=== PATIENT | female | born 1960 | race Caucasian/White ===

== ENCOUNTER → 2016-12-31 | Outpatient (CLI) | payer OTHER ==
--- NOTE | 2017-01-02 08:59 | PE ---
Nuclear medicine PET/CT HISTORY: Breast carcinoma, C 50.512 Patient received 12.6 mCi F-18 FDG intravenously. Delayed scanning performed from the skull base thro ugh the mid thighs. Localization and attenuation correction CT scan was performed. Correlation to prior nuclear medicine PET/CT 08/08/2016 Neck and chest: No suspicious hypermetabolic uptake. No evident adenopathy. No lung mass. Calcified h ilar nodes are present on the right. Mild right-sided hilar uptake, SUV 2.8. No pleural or pericardia l effusion. Emphysematous changes are present within the lungs. Calcified right upper lobe lung nodul es present. Right-sided Port-A-Cath shows the distal tip in the vein. Patient is status post left mas tectomy. Mild glandular uptake in the right breast is thought to be physiologic. ABDOMEN: Calcifications noted within the spleen. No retroperitoneal adenopathy or liver mass. Gallsto dangelo are suspected. Osseous structures are unremarkable. Suspect degenerative uptake in the cervical spine. Mild uptake i n the trochanteric regions likely inflammatory. Small focus of uptake in the anterior right femoral n lynette of questionable clinical significance. No associated bone lesion identified. IMPRESSION: Emphysema. Postop changes. Old granulomatous disease. Recurrence is not evident. Addition al findings above.
== END | disposition home or self-care (01) ==
LOC: RADPETMAIN 16:20
PROVIDERS: ATTEND Radiology Radiation Oncology
DX: C50.512 Malignant neoplasm of lower-outer quadrant of left female breast (principal); J43.9 Emphysema, unspecified; Z98.890 Other specified postprocedural states
CPT/HCPCS: 78815; A9552

== ENCOUNTER 2017-02-16 11:19 | Emergency (ER) | payer OTHER ==
--- NOTE | 2017-02-16 11:59 | ED ---
General Adult HPI - General Chief complaint: Nausea/Vomiting/Diarrhea Stated complaint: nausea, dizziness following chemo Time Seen by Provider: 02/16/17 11:40 Source: patient, RN notes reviewed Mode of arrival: wheelchair Limitations: no limitations - History of Present Illness Initial comments: This is a 56-year-old female with past medical history significant for breast cancer. Patient is getting chemotherapy and daily radiation. Patient comes in today because she is lightheaded and she was told her blood pressure was at the lower limit of normal. Patient states she's also been very nauseated but has not vomited. Patient denies any diarrhea. Patient denies any pain. Patient denies headache patient denies numbness weakness. Patient denies chest pain palpitations difficulty breathing or shortness of breath. Patient has any recent fever or chills. Patient denies any dysuria hematuria urinary frequency. - Related Data Home Medications Medication Instructions Recorded Confirmed Citalopram Hydrobromide 40 mg PO DAILY 02/16/17 02/16/17 [Citalopram HBr] Cyanocobalamin (Vitamin B-12) 1,000 mcg PO DAILY 02/16/17 02/16/17 [Vitamin B-12] Vitamin B Complex 1 cap PO DAILY 02/16/17 02/16/17 oxyCODONE HCL/ACETAMINOPHEN 1 tab PO Q6HR PRN 02/16/17 02/16/17 [Percocet 10-325 mg] Allergies Allergy/AdvReac Type Severity Reaction Status Date / Time amoxicillin [Amoxicillin] Allergy Rash/Hives Verified 02/16/17 11:59 steroids Allergy Rash/Hives Uncoded 02/16/17 11:41 Review of Systems ROS Statement: Those systems with pertinent positive or pertinent negative responses have been documented in the HPI. ROS Other: All systems not noted in ROS Statement are negative. Past Medical History Past Medical History: Cancer Additional Past Medical History / Comment(s): gallstones, arthritis, chronic back pain, breast cancer History of Any Multi-Drug Resistant Organisms: None Reported Past Surgical History: Section Additional Past Surgical History / Comment(s): left breast biospy, left breast masectomy Past Psychological History: Anxiety, Depression Smoking Status: Current every day smoker Past Alcohol Use History: None Reported Past Drug Use History: None Reported General Exam - General Exam Comments Initial Comments: GENERAL: Patient is well-developed and well-nourished. Patient is nontoxic and well- hydrated and is in mild distress. ENT: Neck is soft and supple. No significant lymphadenopathy is noted. Oropharynx is clear. Moist mucous membranes. Neck has full range of motion without eliciting any pain. EYES: The sclera were anicteric and conjunctiva were pink and moist. Extraocular movements were intact and pupils were equal round and reactive to light. Eyelids were unremarkable. PULMONARY: Unlabored respirations. Good breath sounds bilaterally. No audible rales rhonchi or wheezing was noted. CARDIOVASCULAR: There is a regular rate and rhythm without any murmurs gallops or rubs. ABDOMEN: Soft and nontender with normal bowel sounds. No palpable organomegaly was noted. There is no palpable pulsatile mass. SKIN: Skin is clear with no lesions or rashes and otherwise unremarkable. NEUROLOGIC: Patient is alert and oriented x3. Cranial nerves II through XII are grossly intact. Motor and sensory are also intact. Normal speech, volume and content. Symmetrical smile. MUSCULOSKELETAL: Normal extremities with adequate strength and full range of motion. No lower extremity swelling or edema. No calf tenderness. LYMPHATICS: No significant lymphadenopathy is noted PSYCHIATRIC: Normal psychiatric evaluation. Normal interpersonal interactions appears functionally intact in deals appropriately with others. No signs of depression. No signs of anxiety. Limitations: no limitations Course Vital Signs 02/16/17 02/16/17 02/16/17 11:41 12:43 13:29 Temperature 97.8 F Pulse Rate 68 58 L Pulse Rate [ 57 L Right Sitting Pulse Oximetery ] Pulse Rate [ 72 Right Standing Pulse Oximetery ] Pulse Rate [ 59 L Right Supine Pulse Oximetery ] Respiratory 17 18 Rate Blood Pressure 102/57 112/53 Blood Pressure 111/57 [Right Arm Sitting] Blood Pressure 101/50 [Right Arm Standing] Blood Pressure 103/54 [Right Arm Supine] O2 Sat by Pulse 96 98 Oximetry 02/16/17 14:25 Temperature 98.5 F Pulse Rate 65 Pulse Rate [ Right Sitting Pulse Oximetery ] Pulse Rate [ Right Standing Pulse Oximetery ] Pulse Rate [ Right Supine Pulse Oximetery ] Respiratory 20 Rate Blood Pressure 101/56 Blood Pressure [Right Arm Sitting] Blood Pressure [Right Arm Standing] Blood Pressure [Right Arm Supine] O2 Sat by Pulse 98 Oximetry Medical Decision Making - Medical Decision Making EKG shows a normal sinus rhythm at 62 bpm ME interval is on a 44 QRS is 100 a QT interval is 4:30 QTC is 436 per patient's EKG shows no ST segment elevation or depression or T-wave abnormality is noted. Back into the room to reevaluate the patient she stated that she felt much better she thinks it's just her anxiety getting the best of her. New. Patient states she's been out of her Celexa for a few weeks. - Lab Data Result diagrams: 02/16/17 12:40 02/16/17 12:40 Lab Results 02/16/17 02/16/17 02/16/17 Range/Units 12:40 12:40 12:40 WBC 3.6 L (3.8-10.6) k/uL RBC 4.25 (3.80-5.40) m/uL Hgb 13.5 (11.4-16.0) gm/dL Hct 39.9 (34.0-46.0) % MCV 94.1 (80.0-100.0) fL MCH 31.8 (25.0-35.0) pg MCHC 33.8 (31.0-37.0) g/dL RDW 14.8 (11.5-15.5) % Plt Count 140 L (150-450) k/uL Neutrophils % 68 % Lymphocytes % 21 % Monocytes % 5 % Eosinophils % 3 % Basophils % 0 % Neutrophils # 2.4 (1.3-7.7) k/uL Lymphocytes # 0.8 L (1.0-4.8) k/uL Monocytes # 0.2 (0-1.0) k/uL Eosinophils # 0.1 (0-0.7) k/uL Basophils # 0.0 (0-0.2) k/uL Sodium 143 (137-145) mmol/L Potassium 4.3 (3.5-5.1) mmol/L Chloride 109 H (98-107) mmol/L Carbon Dioxide 27 (22-30) mmol/L Anion Gap 7 mmol/L BUN 18 H (7-17) mg/dL Creatinine 0.80 (0.52-1.04) mg/dL Est GFR (MDRD) Af Amer >60 (>60 ml/min/1.73 sqM) Est GFR (MDRD) Non-Af >60 (>60 ml/min/1.73 sqM) Glucose 68 L (74-99) mg/dL Calcium 9.3 (8.4-10.2) mg/dL Magnesium 1.9 (1.6-2.3) mg/dL Total Bilirubin 0.4 (0.2-1.3) mg/dL AST 26 (14-36) U/L ALT 30 (9-52) U/L Alkaline Phosphatase 74 (38-126) U/L Total Protein 6.8 (6.3-8.2) g/dL Albumin 3.9 (3.5-5.0) g/dL Urine Color Yellow Urine Appearance Clear (Clear) Urine pH 6.5 (5.0-8.0) Ur Specific [place] 1.012 (1.001-1.035) Urine Protein Negative (Negative) Urine Glucose (UA) Negative (Negative) Urine Ketones Negative (Negative) Urine Blood Negative (Negative) Urine Nitrite Negative (Negative) Urine Bilirubin Negative (Negative) Urine Urobilinogen <2.0 (<2.0) mg/dL Ur Leukocyte Esterase Small H (Negative) Urine RBC <1 (0-5) /hpf Urine WBC 1 (0-5) /hpf Ur Squamous Epith Cells <1 (0-4) /hpf Urine Mucus Rare H (None) /hpf Disposition Clinical Impression: Generalized weakness, Anxiety Disposition: HOME SELF-CARE Condition: Good Instructions: Weakness (ED) Referrals: Lisha Dozier MD [Primary Care Provider] - 1-2 days Time of Disposition: 14:28
[2017-02-16 12:58] LABS: Basophils % (A) 0 %; CH 31.1; CHCM 33.2; Eosinophils # (A) 0.1 k/uL (0-0.7); Eosinophils % (A) 3 %; HCT 39.9 % (34.0-46.0); HDW 2.55; HGB 13.5 gm/dL (11.4-16.0); Luc % (Auto) 3; Lymphocytes # (A) 0.8 k/uL (1.0-4.8); Lymphocytes % (A) 21 %; MCH 31.8 pg (25.0-35.0); MCHC 33.8 g/dL (31.0-37.0); MCV 94.1 fL (80.0-100.0); Mean Platelet Volume 7.8; Monocytes # (A) 0.2 k/uL (0-1.0); Monocytes % (A) 5 %; Neutrophils # (A) 2.4 k/uL (1.3-7.7); Neutrophils % (A) 68 %; RBC 4.25 m/uL (3.80-5.40); RDW 14.8 % (11.5-15.5); WBC 3.6 k/uL (3.8-10.6); WBC (Perox) 3.67
[2017-02-16 13:05] LABS: Appearance,Urine Clear (Clear); Bilirubin,Urine Negative (Negative); Glucose,Urine (UA) Negative (Negative); Ketones,Urine Negative (Negative); Leukocyte Esterase,Urine Small (Negative); Mucus,Urine Rare /hpf; Nitrite,Urine Negative (Negative); PH, Urine 6.5 (5.0-8.0); Particle Count 489; Protein,Urine Negative (Negative); RBC,Urine <1 /hpf (0-5); Specific Gravity,Urine 1.012 (1.001-1.035); Squamous Epithelial Cell,Urine <1 /hpf (0-4); UA Billing (MACRO vs. MICRO) MICRO; Urobilinogen,Urine <2.0 mg/dL (<2.0); WBC,Urine 1 /hpf (0-5)
--- NOTE | 2017-02-16 13:07 | XR ---
EXAMINATION TYPE: XR chest 2V DATE OF EXAM: 02/16/2017 COMPARISON: Chest x-ray May 30, 2016. PET/CT December 31, 2016. HISTORY: Difficulty in breathing. History of breast cancer. TECHNIQUE: Frontal and lateral views of the chest are obtained. FINDINGS: There is stable right internal jugular Mediport catheter. There is background chronic emphy sematous change redemonstrated. There is no focal air space opacity, pleural effusion, or pneumothora x seen. Bilateral hilar prominence correlates with enlarged pulmonary arteries on recent PET/CT. The cardiac silhouette size is within normal limits. The osseous structures are demineralized. Underlyi ng scoliosis is redemonstrated. Left axillary surgical clips from mastectomy with absent breast shado w is redemonstrated. IMPRESSION: Chronic changes without suspicious acute pulmonary process.
[2017-02-16 13:09] LABS: ALT 30 U/L (9-52); AST 26 U/L (14-36); Alkaline Phosphatase 74 U/L (38-126); Anion Gap 7 mmol/L; Blood Urea Nitrogen 18 mg/dL (7-17); Calcium 9.3 mg/dL (8.4-10.2); Carbon Dioxide 27 mmol/L (22-30); Chloride 109 mmol/L (98-107); Glucose 68 mg/dL (74-99); Magnesium 1.9 mg/dL (1.6-2.3); Non-African American GFR(MDRD) >60 (>60 ml/min/1.73 sqM); Potassium 4.3 mmol/L (3.5-5.1); Sodium 143 mmol/L (137-145); Total Bilirubin 0.4 mg/dL (0.2-1.3); Total Protein 6.8 g/dL (6.3-8.2)
[2017-02-16] MEDS ORDERED: SODIUM CHLORIDE 0.9% 500 ML IV ONE (13:19)
[2017-02-16 14:26] VITALS: BP 101/56; PULSE 65; RESP 20; TEMP 98.5
[2017-02-16] MEDS ORDERED: CITALOPRAM HYDROBROMIDE 20 MG TAB PO STA (14:27)
== END 2017-02-16 14:44 | disposition home or self-care (01) ==
LOC: EC 11:19
DX: R53.1 Weakness (principal); F41.9 Anxiety disorder, unspecified; R11.0 Nausea; R42 Dizziness and giddiness; F32.9 Major depressive disorder, single episode, unspecified; Z85.3 Personal history of malignant neoplasm of breast; F17.200 Nicotine dependence, unspecified, uncomplicated; Z79.899 Other long term (current) drug therapy; Z88.0 Allergy status to penicillin; Z88.8 Allergy status to other drugs, medicaments and biological substances
CPT/HCPCS: 36415; 71020; 80053; 81001; 83735; 85025; 93005; 96360; 99284

== ENCOUNTER 2017-12-14 13:39 | Observation (INO) | payer OTHER ==
[2017-12-14] MEDS ORDERED: SODIUM CHLORIDE 0.9% 500 ML IV STA (14:01)
--- NOTE | 2017-12-14 14:02 | ED ---
General Adult HPI - General Chief complaint: Neuro Symptoms/Deficit Stated complaint: LEFT SIDE FACE ITCHING AND NUMB, LEFT SHOULDER NUM Time Seen by Provider: 12/14/17 14:00 Source: patient, RN notes reviewed Mode of arrival: ambulatory Limitations: no limitations - History of Present Illness Initial comments: This a 57-year-old female presents emergency Department complaining that yesterday she started having itching to the left side of her face and today she started having some more itching and it eventually turned into a tingling sensation his left side of her face was falling asleep. Patient states she can still feel when she touches lightly to her face and she still is full range of motion of her face eyes and mouth. Patient denies any visual disturbance or speech disturbance. Patient denies any numbness or weakness to any of her extremities. Patient denies any chest pain palpitations difficulty breathing shortness of breath. Patient denies any recent fever chills or cough. Patient denies abdominal pain patient denies nausea vomiting or diarrhea. - Related Data Home Medications Medication Instructions Recorded Confirmed Citalopram Hydrobromide 40 mg PO DAILY 02/16/17 12/14/17 [Citalopram HBr] Allergies Allergy/AdvReac Type Severity Reaction Status Date / Time amoxicillin [Amoxicillin] Allergy Rash/Hives Verified 12/14/17 14:31 steroids Allergy Rash/Hives Uncoded 12/14/17 13:51 Review of Systems ROS Statement: Those systems with pertinent positive or pertinent negative responses have been documented in the HPI. ROS Other: All systems not noted in ROS Statement are negative. Past Medical History Past Medical History: Cancer Additional Past Medical History / Comment(s): gallstones, arthritis, chronic back pain, breast cancer History of Any Multi-Drug Resistant Organisms: None Reported Past Surgical History: Section Additional Past Surgical History / Comment(s): left breast biospy, left breast masectomy Past Psychological History: Anxiety, Depression Smoking Status: Current every day smoker Past Alcohol Use History: None Reported Past Drug Use History: None Reported General Exam - General Exam Comments Initial Comments: GENERAL: Patient is well-developed and well-nourished. Patient is nontoxic and well- hydrated and is in mild distress. ENT: Neck is soft and supple. No significant lymphadenopathy is noted. Oropharynx is clear. Moist mucous membranes. Neck has full range of motion without eliciting any pain. EYES: The sclera were anicteric and conjunctiva were pink and moist. Extraocular movements were intact and pupils were equal round and reactive to light. Eyelids were unremarkable. PULMONARY: Unlabored respirations. Good breath sounds bilaterally. No audible rales rhonchi or wheezing was noted. CARDIOVASCULAR: There is a regular rate and rhythm without any murmurs gallops or rubs. ABDOMEN: Soft and nontender with normal bowel sounds. SKIN: Skin is clear with no lesions or rashes and otherwise unremarkable. NEUROLOGIC: Patient is alert and oriented x3. Cranial nerves II through XII are grossly intact. Motor and sensory are also intact. Normal speech, volume and content. Symmetrical smile. MUSCULOSKELETAL: Normal extremities with adequate strength and full range of motion. No lower extremity swelling or edema. No calf tenderness. LYMPHATICS: No significant lymphadenopathy is noted PSYCHIATRIC: Normal psychiatric evaluation. Normal interpersonal interactions appears functionally intact in deals appropriately with others. No signs of depression. No signs of anxiety. Limitations: no limitations Course Vital Signs 12/14/17 13:47 Temperature 98.8 F Pulse Rate 85 Respiratory 16 Rate Blood Pressure 110/65 O2 Sat by Pulse 96 Oximetry Medical Decision Making - Medical Decision Making Chest x-ray shows no acute abnormality. Computed tomography scan shows no acute abnormality. Still feels abnormal sensation in her face I spoke to [facility] hospitalist I admitted the patient and wrote admitting orders - Lab Data Result diagrams: 12/14/17 14:10 12/14/17 14:10 Lab Results 12/14/17 12/14/17 12/14/17 Range/Units 14:04 14:10 14:10 WBC 6.9 (3.8-10.6) k/uL RBC 4.49 (3.80-5.40) m/uL Hgb 13.9 (11.4-16.0) gm/dL Hct 41.5 (34.0-46.0) % MCV 92.3 (80.0-100.0) fL MCH 30.9 (25.0-35.0) pg MCHC 33.5 (31.0-37.0) g/dL RDW 14.1 (11.5-15.5) % Plt Count 249 (150-450) k/uL Neutrophils % 65 % Lymphocytes % 24 % Monocytes % 4 % Eosinophils % 4 % Basophils % 1 % Neutrophils # 4.5 (1.3-7.7) k/uL Lymphocytes # 1.7 (1.0-4.8) k/uL Monocytes # 0.3 (0-1.0) k/uL Eosinophils # 0.3 (0-0.7) k/uL Basophils # 0.1 (0-0.2) k/uL PT (9.0-12.0) sec INR (<1.2) APTT (22.0-30.0) sec Sodium (137-145) mmol/L Potassium (3.5-5.1) mmol/L Chloride (98-107) mmol/L Carbon Dioxide (22-30) mmol/L Anion Gap mmol/L BUN (7-17) mg/dL Creatinine (0.52-1.04) mg/dL Est GFR (CKD-EPI)AfAm (>60 ml/min/1.73 sqM) Est GFR (CKD-EPI)NonAf (>60 ml/min/1.73 sqM) Glucose (74-99) mg/dL POC Glucose (mg/dL) 90 (75-99) mg/dL POC Glu Wire Rigger ID Ambar, Macie Calcium (8.4-10.2) mg/dL Magnesium (1.6-2.3) mg/dL Total Bilirubin (0.2-1.3) mg/dL AST (14-36) U/L ALT (9-52) U/L Alkaline Phosphatase (38-126) U/L Total Creatine Kinase 70 (30-135) U/L CK-MB (CK-2) 1.7 (0.0-2.4) ng/mL CK-MB (CK-2) Rel Index 2.4 Troponin I <0.012 (0.000-0.034) ng/mL Total Protein (6.3-8.2) g/dL Albumin (3.5-5.0) g/dL 12/14/17 12/14/17 Range/Units 14:10 14:10 WBC (3.8-10.6) k/uL RBC (3.80-5.40) m/uL Hgb (11.4-16.0) gm/dL Hct (34.0-46.0) % MCV (80.0-100.0) fL MCH (25.0-35.0) pg MCHC (31.0-37.0) g/dL RDW (11.5-15.5) % Plt Count (150-450) k/uL Neutrophils % % Lymphocytes % % Monocytes % % Eosinophils % % Basophils % % Neutrophils # (1.3-7.7) k/uL Lymphocytes # (1.0-4.8) k/uL Monocytes # (0-1.0) k/uL Eosinophils # (0-0.7) k/uL Basophils # (0-0.2) k/uL PT 9.6 (9.0-12.0) sec INR 1.0 (<1.2) APTT 25.6 (22.0-30.0) sec Sodium 145 (137-145) mmol/L Potassium 4.3 (3.5-5.1) mmol/L Chloride 108 H (98-107) mmol/L Carbon Dioxide 27 (22-30) mmol/L Anion Gap 10 mmol/L BUN 20 H (7-17) mg/dL Creatinine 0.77 (0.52-1.04) mg/dL Est GFR (CKD-EPI)AfAm >90 (>60 ml/min/1.73 sqM) Est GFR (CKD-EPI)NonAf 87 (>60 ml/min/1.73 sqM) Glucose 82 (74-99) mg/dL POC Glucose (mg/dL) (75-99) mg/dL POC Glu Wire Rigger ID Calcium 9.8 (8.4-10.2) mg/dL Magnesium 1.9 (1.6-2.3) mg/dL Total Bilirubin 0.3 (0.2-1.3) mg/dL AST 23 (14-36) U/L ALT 29 (9-52) U/L Alkaline Phosphatase 84 (38-126) U/L Total Creatine Kinase (30-135) U/L CK-MB (CK-2) (0.0-2.4) ng/mL CK-MB (CK-2) Rel Index Troponin I (0.000-0.034) ng/mL Total Protein 6.9 (6.3-8.2) g/dL Albumin 4.1 (3.5-5.0) g/dL Disposition Clinical Impression: Facial paresthesia Disposition: ADMITTED IP TO THIS HOSP Referrals: Lisha Dozier MD [Primary Care Provider] - 1-2 days Time of Disposition: 15:45
[2017-12-14 14:09] LABS: Glucose,Whole Blood 90 mg/dL (75-99)
[2017-12-14 14:38] LABS: Basophils # (A) 0.1 k/uL (0-0.2); Basophils % (A) 1 %; Eosinophils # (A) 0.3 k/uL (0-0.7); Eosinophils % (A) 4 %; HCT 41.5 % (34.0-46.0); HGB 13.9 gm/dL (11.4-16.0); Lymphocytes # (A) 1.7 k/uL (1.0-4.8); Lymphocytes % (A) 24 %; MCH 30.9 pg (25.0-35.0); MCHC 33.5 g/dL (31.0-37.0); MCV 92.3 fL (80.0-100.0); Mean Platelet Volume 7.3; Monocytes # (A) 0.3 k/uL (0-1.0); Monocytes % (A) 4 %; Neutrophils # (A) 4.5 k/uL (1.3-7.7); Neutrophils % (A) 65 %; Platelet Count 249 k/uL (150-450); RBC 4.49 m/uL (3.80-5.40); RDW 14.1 % (11.5-15.5); WBC 6.9 k/uL (3.8-10.6)
[2017-12-14 14:47] LABS: ALT 29 U/L (9-52); AST 23 U/L (14-36); Albumin 4.1 g/dL (3.5-5.0); Alkaline Phosphatase 84 U/L (38-126); Anion Gap 10 mmol/L; Blood Urea Nitrogen 20 mg/dL (7-17); Calcium 9.8 mg/dL (8.4-10.2); Carbon Dioxide 27 mmol/L (22-30); Chloride 108 mmol/L (98-107); Glucose 82 mg/dL (74-99); Magnesium 1.9 mg/dL (1.6-2.3); Potassium 4.3 mmol/L (3.5-5.1); Sodium 145 mmol/L (137-145); Total Bilirubin 0.3 mg/dL (0.2-1.3); Total Protein 6.9 g/dL (6.3-8.2)
[2017-12-14 14:52] LABS: Partial Thromboplastin Time 25.6 sec (22.0-30.0); Prothrombin Time 9.6 sec (9.0-12.0)
[2017-12-14 14:58] LABS: Creatine Kinase 70 U/L (30-135)
[2017-12-14 15:12] LABS: Creatine Kinase MB 1.7 ng/mL (0.0-2.4); Troponin I <0.012 ng/mL (0.000-0.034)
--- NOTE | 2017-12-14 15:34 | CT ---
EXAMINATION TYPE: CT brain wo con DATE OF EXAM: 12/14/2017 COMPARISON: Previous head CT 10/30/2012 HISTORY: Left side facial numbness. CT DLP: 1032.2 mGycm Automated exposure control for dose reduction was used. Helical imaging through the brain. FINDINGS: There is no interval change. There is no hemorrhage or hydrocephalus. Brain density is stable. Calvar ium is intact. Paranasal sinuses and mastoid air cells as visualized are unchanged. IMPRESSION: STABLE EXAM, NO ACUTE ABNORMALITY IS EVIDENT, CONSIDER MRI INDICATED.
--- NOTE | 2017-12-14 15:34 | XR ---
EXAMINATION TYPE: XR chest 2V DATE OF EXAM: 12/14/2017 COMPARISON: February 16, 2017 HISTORY: Shortness of breath TECHNIQUE: Frontal and lateral views of the chest are obtained. FINDINGS: Scattered senescent parenchymal changes noted. Hyperinflation compatible with COPD. No evidence for infiltrate. No evidence for atelectasis. Heart size is stable. Mediastinal structures are stable and grossly unremarkable. No evidence for hilar prominence. Degenerative changes dorsal spine. IMPRESSION: 1. No evidence for acute pulmonary disease.
[2017-12-14] MEDS ORDERED: ASPIRIN 325 MG TAB PO STA (15:47)
[2017-12-14 16:24] VITALS: PULSE 61; RESP 18
[2017-12-14 17:26] VITALS: TEMP 98.2
[2017-12-14 17:34] VITALS: BP 98/53
--- NOTE | 2017-12-15 00:11 | P.HPIM ---
History of Present Illness H&P Date: 12/14/17 Chief Complaint: Left-sided facial numbness This a 57-year-old female with a known history of left-sided breast cancer status post mastectomy and chemoradiation, nicotine addiction presents emergency Department complaining that yesterday she started having itching to the left side of her face and today she started having some more itching and it eventually turned into a tingling sensation his left side of her face . Patient states she can still feel when she touches lightly to her face and she still is full range of motion of her face eyes and mouth. Patient denies any visual disturbance or speech disturbance. Patient denies any numbness or weakness to any of her extremities. Patient denies any chest pain palpitations difficulty breathing shortness of breath. Patient denies any recent fever chills or cough. Patient denies abdominal pain patient denies nausea vomiting or diarrhea. Patient does complain of ringing of ears and the left side. Patient says that she was exposed to mold several years ago. Recently she had a plumbing work done in her bathroom and was left open and was having muscular in the bedroom. She says that she felt her ear symptoms are similar to her prior exposure to mold. Again that's several years ago. No fever no chills. No nausea vomiting or abdominal pain. No headache or dizziness or lightheadedness. Patient is currently a day smoker. CT head is negative for an acute process. Chest x-ray is negative. EKG showed normal sinus rhythm. Review of Systems Constitutional: Patient denies any fever or chills . No generalized weakness or weight loss. Abdomen: Patient denied nausea vomiting and diarrhea and abdominal pain. Cardiovascular: Patient denies any chest pain or short of breath no palpitations. Respiratory: patient denied any cough is from production. No shortness of breath Neurologic: Patient does have left-sided facial numbness below the eyes and no headache or dizziness. No weakness. Musculoskeletal: Patient denies any complaints of joint swelling or deformity. Skin: Negative Psychiatric: Negative Endocrine: No heat or cold intolerance. No recent weight gain. Genitourinary: No dysuria or hematuria. All other 14 point ROS negative except the above Past Medical History Past Medical History: Cancer Additional Past Medical History / Comment(s): gallstones, arthritis, chronic back pain, past lt breast cancer, cataracts, lt frozen shoulder History of Any Multi-Drug Resistant Organisms: None Reported Past Surgical History: Section, Tubal Ligation Additional Past Surgical History / Comment(s): left breast biospy, left breast masectomy Past Anesthesia/Blood Transfusion Reactions: Motion Sickness Additional Past Anesthesia/Blood Transfusion Reaction / Comment(s): clausterphobia Smoking Status: Current every day smoker - Past Family History Father Family Medical History: Cancer Additional Family Medical History / Comment(s): liver cancer Mother Additional Family Medical History / Comment(s): AAA Medications and Allergies Home Medications Medication Instructions Recorded Confirmed Type Citalopram Hydrobromide 40 mg PO DAILY 02/16/17 12/14/17 History [Citalopram HBr] Allergies Allergy/AdvReac Type Severity Reaction Status Date / Time amoxicillin [Amoxicillin] Allergy Rash/Hives Verified 12/14/17 14:31 steroids Allergy Rash/Hives Uncoded 12/14/17 13:51 Physical Exam Vitals: Vital Signs Temp Pulse Pulse Resp BP BP Pulse Ox 12/14/17 17:20 61 18 98/53 12/14/17 16:23 61 18 92/52 97 12/14/17 15:20 98.2 F 98 16 97/51 98 12/14/17 13:47 98.8 F 85 16 110/65 96 Intake and Output 12/14/17 12/14/17 12/14/17 06:59 14:59 22:59 Other: Weight 56.699 kg PHYSICAL EXAMINATION: Patient is lying in the bed comfortably, no acute distress, awake alert and oriented.. HEENT: Normocephalic. Neck is supple. Pupils reactive. Nostrils clear. Oral cavity is moist. Ears reveal no drainage. Neck reveals no JVD, carotid bruits, or thyromegaly. CHEST EXAMINATION: Trachea is central. Symmetrical expansion. Lung ibanez clear to auscultation and percussion. CARDIAC: Normal S1, S2 with no gallops. No murmurs ABDOMEN: Soft. Bowel sounds normal. No organomegaly. No abdominal bruits. Extremities: reveal no edema. No clubbing or cyanosis Neurologically awake, alert, oriented x3 with well-coordinated movements. No facial droop. Left-sided patient numbness below the eye. No ptosis or drooping. No other focal deficits noted Skin: No rash or skin lesions. Psychiatric: Coperative. Nonsuicidal Musculoskeletal: No joint swelling or deformity. Normal range of motion. Results CBC & Chem 7: 12/14/17 14:10 12/14/17 14:10 Labs: Abnormal Lab Results - Last 24 Hours (Table) 12/14/17 Range/Units 14:10 Chloride 108 H (98-107) mmol/L BUN 20 H (7-17) mg/dL Thrombosis Risk Factor Assmnt - DVT/VTE Prophylaxis DVT/VTE Prophylaxis: Pharmacologic Prophylaxis ordered Assessment and Plan Assessment: Left-sided facial numbness possible trigeminal neuralgia. Rule out CVA History of breast cancer status post left breast mastectomy and chemoradiation Nicotine addiction DVT prophylaxis Plan: Continue the neuro checks. Started on aspirin. Neurology was consulted. CT head is negative. We'll check TSH level. Continue to follow closely and further recommendations based on the clinical course. Time with Patient: Greater than 30
--- NOTE | 2017-12-15 00:13 | P.DS ---
Providers Date of admission: 12/14/17 15:47 Expected date of discharge: 12/14/17 Attending physician: Rob Fragoso Consults: 12/14/17 15:47 Consult Physician Routine Consulting Provider: Denton Crews Consult Reason/Comments: Facial paresthesias Do you want consulting provider notified?: Yes Primary care physician: [facility] Hospital Course: Hospital course This a 57-year-old female with a known history of left-sided breast cancer status post mastectomy and chemoradiation, nicotine addiction presents emergency Department complaining that yesterday she started having itching to the left side of her face and today she started having some more itching and it eventually turned into a tingling sensation his left side of her face . Patient states she can still feel when she touches lightly to her face and she still is full range of motion of her face eyes and mouth. Patient denies any visual disturbance or speech disturbance. Patient denies any numbness or weakness to any of her extremities. Patient denies any chest pain palpitations difficulty breathing shortness of breath. Patient denies any recent fever chills or cough. Patient denies abdominal pain patient denies nausea vomiting or diarrhea. Patient does complain of ringing of ears and the left side. Patient says that she was exposed to mold several years ago. Recently she had a plumbing work done in her bathroom and was left open and was having muscular in the bedroom. She says that she felt her ear symptoms are similar to her prior exposure to mold. Again that's several years ago. No fever no chills. No nausea vomiting or abdominal pain. No headache or dizziness or lightheadedness. Denied any recent illnesses. No recent travel or sick contacts. Patient is currently a day smoker. CT head is negative for an acute process. Chest x-ray is negative. EKG showed normal sinus rhythm. Discharge diagnosis Left-sided facial numbness possible trigeminal neuralgia. Sparing of the frontal area. Rule out CVA History of breast cancer status post left breast mastectomy and chemoradiation Nicotine addiction DVT prophylaxis Continued the neuro checks. Started on aspirin. Neurology was consulted. CT head is negative. Ordered TSH level. Patient left againest medical advice Patient Condition at Discharge: Fair Plan - Discharge Summary Discharge Rx Participant: Yes New Discharge Prescriptions: No Action Citalopram Hydrobromide [Citalopram HBr] 40 mg PO DAILY Discharge Medication List Citalopram Hydrobromide [Citalopram HBr] 40 mg PO DAILY 02/16/17 [History] Follow up Appointment(s)/Referral(s): Lisha Dozier MD [Primary Care Provider] - 1-2 days Discharge Disposition: Left Against Medical Advice
[2017-12-15] MEDS ORDERED: ASPIRIN 325 MG TAB PO SCH (09:00)
== END 2017-12-14 18:30 | disposition left against medical advice (07) ==
LOC: EC 13:39 → 6SEL 15:47
PROVIDERS: ADMIT Internal Medicine; ATTEND Internal Medicine
DX: R20.2 Paresthesia of skin (principal); R20.0 Anesthesia of skin; L29.9 Pruritus, unspecified; Z85.3 Personal history of malignant neoplasm of breast; M19.90 Unspecified osteoarthritis, unspecified site; G89.29 Other chronic pain; M54.9 Dorsalgia, unspecified; F32.9 Major depressive disorder, single episode, unspecified; F41.9 Anxiety disorder, unspecified; F17.200 Nicotine dependence, unspecified, uncomplicated; Z79.899 Other long term (current) drug therapy; Z88.8 Allergy status to other drugs, medicaments and biological substances; Z88.0 Allergy status to penicillin; Z92.21 Personal history of antineoplastic chemotherapy; Z92.3 Personal history of irradiation; Z80.0 Family history of malignant neoplasm of digestive organs; Z82.49 Family history of ischemic heart disease and other diseases of the circulatory system; Z90.12 Acquired absence of left breast and nipple
CPT/HCPCS: 99285 ×2; 96360 ×2; 36415; 93005; 80053; 84443; 82550; 82553; 83735; 84484; 85025; 85610; 85730; 71046; 70450; G0378

== ENCOUNTER → 2020-10-29 | Outpatient (CLI) | payer MEDICARE ==
--- NOTE | 2020-10-29 09:59 | CTL ---
EXAMINATION TYPE: CT Low Dose Lung DATE OF EXAM ORDERED: 10/29/2020 COMPARISON: None HISTORY: . Low Dose CT Lung Screening CT DLP: [address] CTDI: 1.57 mGy IV CONTRAST USED: None. SCREENING VISIT: First visit COMPARISON: None. TECHNIQUE: Low dose computed tomography scan was performed through the chest at 1 millimeter thick se ctions and reconstructed images in the coronal plane at [address] DIAGNOSTIC QUALITY: Satisfactory FINDINGS: LUNG NODULES there is difficult to measure a left suprahilar mass with estimated measurement of 5.6 x 7.6 cm. There are multiple adjacent satellite nodules as well as nodular pleural thickening anterior ly. There appears to be chest wall invasion. The findings are felt to reflect malignancy until proven otherwise. Contrast enhanced CT of the chest is recommended. Several right upper lobe sub-5 mm pulmo nary nodules seen. Nodule right upper lobe posteriorly measures 8 mm and may demonstrate internal mikey cification. LUNGS: COPD: Severity: Mild Fibrosis: Severity:None Lymph nodes: None Other findings: None RIGHT PLEURAL SPACE: Effusion: None Calcification: None Thickening: None Pneumothorax: None LEFT PLEURAL SPACE: Effusion: None Calcification: None Thickening: Nodular pleural thickening identified left upper lobe anteriorly and extending laterally with chest wall invasion. Pneumothorax: None HEART: Heart Size: Mildly enlarged Coronary calcification: Mild Pericardial effusion: None OTHER FINDINGS: Upper abdomen: No significant abnormality Bony thorax: Degenerative changes Supraclavicular region: No significant abnormalityOther: No significant abnormalityI IMPRESSION: 1. Findings felt to reflect malignancy until proven otherwise with left suprahilar mass and multiple adjacent satellite nodules. Extensive nodular pleural thickening left upper lobe with chest wall inva carlitos. I suspect mediastinal and left hilar adenopathy. Standard CT of the chest is advised. FOLLOW UP CT CHEST RECOMMENDATION: Immediate physician follow up for malignancy CT LUNG RAD: LUNG RAD CATEGORY suspicious category 4X
== END | disposition home or self-care (01) ==
LOC: RADCTMAIN 09:12
PROVIDERS: ATTEND Family Medicine
DX: Z12.2 Encounter for screening for malignant neoplasm of respiratory organs (principal); R91.8 Other nonspecific abnormal finding of lung field; J92.9 Pleural plaque without asbestos; F17.210 Nicotine dependence, cigarettes, uncomplicated
CPT/HCPCS: 71271

== ENCOUNTER 2020-11-10 08:55 | Day surgery (SDC) | payer MEDICARE ==
[2020-11-10] MEDS ORDERED: ALPRAZolam 0.5 MG TAB PO STA (09:36)
[2020-11-10 09:38] LABS: Mean Platelet Volume 7.1; Platelet Count 214 k/uL (150-450)
[2020-11-10 09:44] LABS: INR 0.9 (<1.2)
[2020-11-10 09:54] VITALS: TEMP 97.9
[2020-11-10] MEDS ORDERED: HYDROcodone/APAP 5-325MG 1 EACH TAB PO PRN (11:07)
[2020-11-10 11:58] VITALS: RESP 16
--- NOTE | 2020-11-10 13:14 | CT ---
EXAMINATION TYPE: CT biopsy lung LT DATE OF EXAM: 11/10/2020 HISTORY: Lung nodule COMPARISON: CT low dose lung 10/29/2020 demonstrated left suprahilar lung mass and extensive pleural b ased masses, with osseous destruction of anterior ribs on the left. Informed consent was obtained by Dr. Manjula Lovett prior to procedure. Preliminary CT imaging demonstrated the left lung mass and extensive pleural-based masses with destru ction of the left anterior ribs of the chest wall. The skin overlying a suitable path to the left ant erior pleural-based masses and chest wall masses or localized using CT and the overlying skin was pre pped and draped utilizing maximal barrier technique. 1% Lidocaine used for local anesthesia. A small skin soledad was made with a scalpel. Using CT guidance, access was gained to the lesion with a 5 cm 17- gauge introducer needle, with 10 cm 18-gauge core biopsy needle. Core specimen(s) submitted in formal in for histopathology. 2 pass(es) performed in all. All needles were removed and sterile bandage was applied. Postprocedure CT imaging demonstrated foci of air within the left anterior chest wall mass as expecte d postbiopsy, and no evidence of significant hemorrhage or pneumothorax. Patient tolerated procedure well with no immediate complications. Patient is discharged in stable condition. IMPRESSION: SUCCESSFUL CT GUIDED LEFT CHEST WALL/PLEURAL 18G CORE BIOPSY. PATHOLOGY PENDING. THIS PROCEDURE WAS PERFORMED BY THE UNDERSIGNED.
[2020-11-10 15:20] VITALS: BP 103/63; PULSE 94
== END 2020-11-10 13:07 | disposition home or self-care (01) ==
LOC: RADPROMAIN 08:55
PROVIDERS: ATTEND Internal Medicine
DX: C34.92 Malignant neoplasm of unspecified part of left bronchus or lung (principal)
CPT/HCPCS: 32408; 36415; 85049; 85610; 88305; 88341; 88342

== ENCOUNTER → 2020-11-16 | Outpatient (CLI) | payer MEDICARE ==
--- NOTE | 2020-11-16 21:42 | MR ---
EXAMINATION TYPE: MR brain wo/w con DATE OF EXAM: 11/16/2020 COMPARISON: CT brain 12/14/2018 HISTORY: Lung cancer, evaluate for metastatic disease. TECHNIQUE: Multiplanar, multisequence images of the brain and brainstem is performed without and with IV contras t, utilizing 5.5 mL intravenous Gadavist . FINDINGS: Diffusion weighted images demonstrate no evidence of a recent infarct or other diffusion ab normality. There is no extra-axial fluid collection, and there is some increased signal on inversion recovery T2-weighted sequences within the singh which is somewhat patchy in distribution. The ventri cular system and cisternal spaces are normal in size and appearance. The brain volume is age appropr iate. Midline structures demonstrate normal morphology. The craniocervical junction appears within normal limits. Post contrast images demonstrate no abnormal enhancement. The dural venous sinuses appear pa tent. The visualized sinuses are showing some mucoperiosteal thickening in the ethmoid air cells and the globes are intact. IMPRESSION: No evident abnormal enhancement to suggest metastatic disease. There is some nonspecific white matter signal change within the singh.
== END | disposition home or self-care (01) ==
LOC: RADMRIMAIN 20:13
PROVIDERS: ATTEND Internal Medicine Hematology & Oncology
DX: C34.12 Malignant neoplasm of upper lobe, left bronchus or lung (principal); R90.82 White matter disease, unspecified
CPT/HCPCS: 70553; A9585

== ENCOUNTER → 2020-11-21 | Outpatient (CLI) | payer MEDICARE ==
--- NOTE | 2020-11-24 06:50 | PE ---
EXAMINATION TYPE: PET CT fusion skull to thigh DATE OF EXAM: 11/21/2020 COMPARISON: CT low-dose lung screening CT October 29, 2020 HISTORY: Newly diagnosed lung cancer. History of breast cancer 2017 TECHNIQUE: Following the intravenous administration of 6.9 mCi of F-18 FDG, whole body images are pe rformed from the skull base to the midthigh. Images are reviewed on the computer in the coronal, axi al, and sagittal planes. Reconstructed rotating images are created on independent workstation and re viewed on the computer. A localization and attenuation correction CT is performed in conjunction wi th the PET scan. Blood glucose level equals 97 SCAN: Initial Scan FINDINGS: SKULL BASE AND NECK: Confluent left supraclavicular adenopathy at level of thyroid gland axial image 59, largest measures approximately 2.2 x 2.2 cm with max SUV 5.95. CHEST, MEDIASTINUM, AND HILAR REGION: Background moderate underlying emphysematous change is redemons trated. There is more prominent or confluent left hilar mass with anterior superior extension to the left key g apex on current study. Extension to the anterior lateral chest wall is noted. Mass measures approxi mately 9.4 x 8.9 cm axial image 78. No obvious rib destruction. The max SUV is 9.89. Additional abnormal hypermetabolic uptake left hilar region along with AP window near axial image 81 and subcarinal level axial image 87 likely correspond to adenopathy, mediastinal invasion of neoplasm is also suspected. There is abnormal subcentimeter posterior pleural deposit or mediastinal lesion a xial image 100, max SUV is 3.8. Abnormal right superior mediastinal 2.0 x 2.0 cm lymph node axial kelly ge 73, max SUV is 8.48. ABDOMEN AND PELVIS: Large heterogeneous hypodense mass deep aspect of liver near kala hepatis measur es 6.0 cm long axis axial image 135, Max SUV is 10.3. Additional 2 lesions between 0 and 2 cm hypoden se hypermetabolic foci left hepatic lobe are present, for reference axial image 140. Probable additio nal hyperdense subcentimeter focus periphery right hepatic lobe axial image 139. No additional areas of abnormal hypermetabolic uptake. No adrenal masses. OSSEOUS STRUCTURES: No areas areas of suspicious hypermetabolic uptake. Some uptake near left rib art iculation with thoracic spine without CT correlate. OTHER CT: There is right internal jugular Mediport catheter terminating near brachiocephalic vein con fluence. Scattered calcifications throughout the spleen consistent with product of old granulomatous disease. Dependent small calcified gallstone in gallbladder. Anteverted uterus. Underlying scoliosis. IMPRESSION: Findings consistent with high stage neoplasm as detailed above. Large left mass with abno rmal thoracic adenopathy and hepatic metastatic disease.
== END | disposition home or self-care (01) ==
LOC: RADPETMAIN 08:14
PROVIDERS: ATTEND Internal Medicine Hematology & Oncology
DX: C34.12 Malignant neoplasm of upper lobe, left bronchus or lung (principal); C78.7 Secondary malignant neoplasm of liver and intrahepatic bile duct; Z85.3 Personal history of malignant neoplasm of breast
CPT/HCPCS: 78815; A9552

== ENCOUNTER → 2021-01-22 | Outpatient (CLI) | payer MEDICARE ==
--- NOTE | 2021-01-27 09:18 | PE ---
Nuclear medicine PET/CT HISTORY: C34.92 Lung Cancer left, subsequent Patient received 10.6 mCi F-18 FDG intravenously, delayed scanning was performed from the skull base to the mid thighs. Localization and attenuation correction CT scan was performed. Correlation to prior nuclear medicine PET/CT 11/21/2020 Chest and neck: The extensive abnormal uptake seen on previous exam within the left hemithorax has im proved in the interval. There is no mediastinal, axillary, or hilar adenopathy. Patient is post left mastectomy. No cervical or supraclavicular adenopathy. Right-sided Port-A-Cath is present. There is r esidual apical pleural thickening on the left, there is some parenchymal bands in the left upper lobe , volume loss, some pleural thickening is noted along anterior left pleural margin, SUV is 2.5 along the anterior pleural margin. No pleural or pericardial effusion evident. There is a calcified granulo ma right upper lobe, some apical pleural thickening also present on the right is stable. ABDOMEN: There is no retroperitoneal adenopathy or ascites. No evident liver mass. Scattered granulom a present within the spleen. Osseous structures show no suspicious uptake. IMPRESSION: There is marked improvement in the tumor burden noted on the last exam.
== END | disposition home or self-care (01) ==
LOC: RADPETMAIN 08:06
PROVIDERS: ATTEND Internal Medicine Hematology & Oncology
DX: C34.92 Malignant neoplasm of unspecified part of left bronchus or lung (principal); Z90.12 Acquired absence of left breast and nipple
CPT/HCPCS: 78815; A9552

== ENCOUNTER → 2021-02-10 | Outpatient (CLI) | payer MEDICARE ==
[2021-02-10 12:08] LABS: African American GFR (CKD) >90 (>60 ml/min/1.73 sqM); Blood Urea Nitrogen 19 mg/dL (7-17); Non-African American GFR(CKD) >90 (>60 ml/min/1.73 sqM)
--- NOTE | 2021-02-10 12:54 | CT ---
EXAMINATION TYPE: CT chest w con DATE OF EXAM: 02/10/2021 COMPARISON: 01/22/2021 HISTORY: Shortness of breath and chest tightness for 3-[address] DLP: 299 mGycm Automated exposure control for dose reduction was used. TECHNIQUE: CT scan of the chest is performed with IV Contrast, patient injected with 100 mL of Isovue 300. MIP Images are created on CT scanner and reviewed. 3D reconstructed images are created on an independent workstation and reviewed. FINDINGS: LUNGS: Diffuse changes of COPD. Left lung and percent) calcified granuloma is seen in the right lung apex. There are stable appearing biapical thickening greater on the left. Peripheral 6 mm nodule left upper lobe stable. No new consolidative pneumonia or pleural effusion. No pneumothorax. MEDIASTINUM: There are no greater than 1 cm hilar or mediastinal lymph nodes. Left hilar soft tissue thickening stable. Heart size stable. Aorta appears of normal caliber. Central pulmonary arteries enhance normally. OTHER: Left-sided mastectomy changes. Port-A-Cath noted. Numerous splenic granuloma noted. Scoliotic curvature spine severe multilevel degenerative disc disease.. IMPRESSION: 1 COPD with persistent changes of chronic granulomatous disease. 2. Apical pleural thickening and areas of nodularity are stable.
== END | disposition home or self-care (01) ==
LOC: RADPROMAIN 11:11
PROVIDERS: ATTEND Internal Medicine Hematology & Oncology
DX: J44.9 Chronic obstructive pulmonary disease, unspecified (principal); J84.10 Pulmonary fibrosis, unspecified
CPT/HCPCS: 82565; 84520; 71260; J1642; Q9967

== ENCOUNTER → 2021-05-21 | Outpatient (CLI) | payer MEDICARE ==
--- NOTE | 2021-05-24 14:50 | PE ---
EXAMINATION TYPE: PET CT fusion skull to thigh DATE OF EXAM: 05/21/2021 COMPARISON: Prior PET/CT January 22, 2021 and older studies HISTORY: History of left-sided breast cancer 2016 with left sided small cell lung carcinoma diagnosed November 2020 TECHNIQUE: Following the intravenous administration of 9.46 mCi of F-18 FDG, whole body images are p erformed from the skull base to the midthigh. Images are reviewed on the computer in the coronal, ax ial, and sagittal planes. Reconstructed rotating images are created on independent workstation and r eviewed on the computer. A localization and attenuation correction CT is performed in conjunction w ith the PET scan. Blood glucose level equals 122. SCAN: Subsequent Scan FINDINGS: SKULL BASE AND NECK: Mild anterior cervical muscular uptake left greater than right is redemonstrate d. No new suspicious abnormal hypermetabolic mass or adenopathy. CHEST, MEDIASTINUM, AND HILAR REGION: Background mild to moderate underlying emphysematous change red emonstrated. Persistent left lung scarring and volume loss. No recurrent or new abnormal hypermetabol ic masses or thoracic adenopathy. Left-sided mastectomy change redemonstrated. ABDOMEN AND PELVIS: Normal excretion. No new adrenal masses. No new hypermetabolic lesions. OSSEOUS STRUCTURES: No new hypermetabolic osseous lesions. OTHER CT: There is stable right internal jugular Mediport catheter. Left-sided mastectomy changes wit h left axillary surgical clips redemonstrated Scattered calcifications throughout the spleen consistent with product of old granulomatous disease a long with calcified right hilar nodules are redemonstrated. Dependent small calcified gallstone in ga llbladder redemonstrated. Anteverted uterus. Underlying scoliosis noted. IMPRESSION: No suspicious new hypermetabolic uptake to suggest recurrent active malignancy. Continued complete positive treatment response noted.
== END | disposition home or self-care (01) ==
LOC: RADPETMAIN 07:25
PROVIDERS: ATTEND Internal Medicine Hematology & Oncology
DX: C34.82 Malignant neoplasm of overlapping sites of left bronchus and lung (principal); Z85.3 Personal history of malignant neoplasm of breast
CPT/HCPCS: 78815; A9552

== ENCOUNTER → 2021-11-19 | Outpatient (CLI) | payer MEDICARE ==
--- NOTE | 2021-11-22 06:28 | PE ---
EXAMINATION TYPE: PET CT fusion skull to thigh DATE OF EXAM: 11/19/2021 COMPARISON: Most recent chest CT November 09, 2021 and older studies. Most recent PET/CT May 21, 2021 HISTORY: Lung cancer progress study originally diagnosed November 2020. Patient completed chemotherapy Feb us2020 and radiation treatment in 2021. History of left-sided breast cancer diagnosed 2016 and [place] in 2017. TECHNIQUE: Following the intravenous administration of 12.49 mCi of F-18 FDG, whole body images are performed from the skull base to the midthigh. Images are reviewed on the computer in the coronal, a xial, and sagittal planes. Reconstructed rotating images are created on independent workstation and reviewed on the computer. A localization and attenuation correction CT is performed in conjunction with the PET scan. Blood glucose level equals 88. SCAN: Subsequent Scan FINDINGS: SKULL BASE AND NECK: Recurrent hypermetabolic left supraclavicular lesion, max SUV is 6.41 on axial image 55. CHEST, MEDIASTINUM, AND HILAR REGION: Background mild to moderate underlying emphysematous change red emonstrated. New 1.1 cm peripheral left mid lung nodule axial image 87 is mildly hypermetabolic, max SUV is 3.26. New multiple hypermetabolic thoracic lymph nodes throughout the upper to mid mediastinum with involve ment in the paratracheal region, AP window, and subcarinal levels. There is left hilar hypermetabolic adenopathy axial image 90, max SUV is 8.25. ABDOMEN AND PELVIS: Hypermetabolic large mass in the right upper to mid abdomen near kala hepatis edmond spicious for abnormal adenopathy measuring approximately 5.7 cm long axis axial image 140, max SUV is 9.47. OSSEOUS STRUCTURES: Scattered hypermetabolic osseous metastatic lesions are now present. For referenc e right pubic symphysis axial image 219, max SUV is 5.75 corresponding to subtle lytic lesion on axia l image 215. There is a hypermetabolic lytic lesion in the medial left femoral head axial image 209, max SUV is 529. OTHER CT: There is stable right internal jugular Mediport catheter. Left-sided mastectomy changes with left axi llary surgical clips redemonstrated. Scattered calcifications throughout the spleen consistent with product of old granulomatous disease a long with calcified right hilar nodules are redemonstrated. Dependent small calcified gallstone in ga llbladder redemonstrated. Patient has little intra-abdominal fat. Anteverted uterus. Underlying scoli osis noted. IMPRESSION: Active metastatic malignant recurrence as suspected on most recent CT is now present as d etailed above.
== END | disposition home or self-care (01) ==
LOC: RADPETMAIN 13:59
PROVIDERS: ATTEND Internal Medicine Hematology & Oncology
DX: C34.92 Malignant neoplasm of unspecified part of left bronchus or lung (principal); C79.51 Secondary malignant neoplasm of bone; R91.8 Other nonspecific abnormal finding of lung field
CPT/HCPCS: 78815; A9552

== ENCOUNTER → 2022-02-25 | Outpatient (CLI) | payer MEDICARE ==
--- NOTE | 2022-02-25 10:15 | PE ---
EXAMINATION TYPE: PET CT fusion skull to thigh DATE OF EXAM: 02/25/2022 COMPARISON: Most recent PET CT November 19, 2021 and older studies HISTORY: Lung cancer progress study. Small cell lung cancer left side diagnosed November 2020 completed chemotherapy February 18, 2022. History of breast cancer 2017. TECHNIQUE: Following the intravenous administration of 13 mCi of F-18 FDG, whole body images are per formed from the skull base to the midthigh. Images are reviewed on the computer in the coronal, axia l, and sagittal planes. Reconstructed rotating images are created on independent workstation and rev iewed on the computer. A localization and attenuation correction CT is performed in conjunction wit h the PET scan. Blood glucose level equals 89 SCAN: Subsequent Scan FINDINGS: SKULL BASE AND NECK: Resolved hypermetabolic left supraclavicular lesion. No new areas of abnormal h ypermetabolic uptake on current study. CHEST, MEDIASTINUM, AND HILAR REGION: Background mild to moderate underlying emphysematous change red emonstrated. Persistent left apical pleural thickening. Interval resolved 1.1 cm peripheral left mid lung nodule. Interval resolved hypermetabolic mediastinal and left hilar adenopathy. No abnormal hypermetabolic up take on current study. No enlarged lymph nodes clearly seen on CT. ABDOMEN AND PELVIS: Interval resolved hypermetabolic large mass in the upper to mid abdomen. No abnor mal hypermetabolic uptake on current exam. OSSEOUS STRUCTURES: Scattered osseous metastatic lesions are redemonstrated. No residual or new areas of abnormal hypermetabolic uptake on current exam. OTHER CT: There is stable right internal jugular Mediport catheter. Left-sided mastectomy changes with left axi llary surgical clips redemonstrated. Scattered calcifications throughout the spleen consistent with product of old granulomatous disease a long with calcified right hilar nodules are redemonstrated. Dependent small calcified gallstone in ga llbladder redemonstrated. Patient has little intra-abdominal fat. Anteverted uterus. Underlying scoli osis redemonstrated. IMPRESSION: Complete positive treatment response as detailed above.
== END | disposition home or self-care (01) ==
LOC: RADPETMAIN 08:18
PROVIDERS: ATTEND Internal Medicine Hematology & Oncology
DX: C34.12 Malignant neoplasm of upper lobe, left bronchus or lung (principal); Z85.3 Personal history of malignant neoplasm of breast
CPT/HCPCS: 78815; A9552

== ENCOUNTER 2022-03-29 12:21 | Emergency (ER) | payer MEDICARE ==
[2022-03-29 12:32] VITALS: TEMP 98.1
[2022-03-29] MEDS ORDERED: ONDANSETRON 4 MG/2 ML VIAL IVP STA (14:08)
[2022-03-29] MEDS ORDERED: MORPHINE SULFATE 4 MG/ML SYRINGE IV STA (14:08)
[2022-03-29] MEDS ORDERED: SODIUM CHLORIDE 0.9% 1,000 ML IV STA (14:08)
[2022-03-29 14:36] LABS: Basophils # (A) 0.1 k/uL (0-0.2); Basophils % (A) 1 %; Eosinophils # (A) 0.1 k/uL (0-0.7); Eosinophils % (A) 1 %; HCT 40.8 % (34.0-46.0); Hypochromasia Slight; Lymphocytes # (A) 0.6 k/uL (1.0-4.8); Lymphocytes % (A) 11 %; MCH 31.5 pg (25.0-35.0); MCV 98.5 fL (80.0-100.0); Monocytes # (A) 0.3 k/uL (0-1.0); Monocytes % (A) 5 %; Neutrophils # (A) 4.3 k/uL (1.3-7.7); Neutrophils % (A) 80 %; Platelet Count 220 k/uL (150-450); RBC 4.14 m/uL (3.80-5.40); RDW 15.9 % (11.5-15.5); WBC 5.4 k/uL (3.8-10.6)
[2022-03-29 14:48] LABS: ALT 17 U/L (4-34); AST 26 U/L (14-36); African American GFR (CKD) >90 (>60 ml/min/1.73 sqM); Albumin 4.3 g/dL (3.5-5.0); Alkaline Phosphatase 115 U/L (38-126); Anion Gap 10 mmol/L; Blood Urea Nitrogen 14 mg/dL (7-17); Calcium 9.5 mg/dL (8.4-10.2); Carbon Dioxide 26 mmol/L (22-30); Chloride 104 mmol/L (98-107); Glucose 104 mg/dL (74-99); Lipase 13 U/L (23-300); Non-African American GFR(CKD) >90 (>60 ml/min/1.73 sqM); Potassium 4.2 mmol/L (3.5-5.1); Sodium 140 mmol/L (137-145); Total Bilirubin 0.3 mg/dL (0.2-1.3); Total Protein 7.1 g/dL (6.3-8.2)
[2022-03-29] MEDS ORDERED: METOCLOPRAMIDE 5 MG/ML 2 ML VIAL IVP STA (15:05)
[2022-03-29] MEDS ORDERED: diphenhydrAMINE 50 MG/ML 1 ML VIAL IVP STA (15:05)
--- NOTE | 2022-03-29 15:18 | ED ---
Abdominal Pain HPI - General Source: patient Mode of arrival: ambulatory Limitations: no limitations <Gianna Neville - Last Filed: 03/29/22 15:17> <Kalin Jewell - Last Filed: 03/29/22 23:24> - General Chief Complaint: Abdominal Pain Stated Complaint: abd pain Time Seen by Provider: 03/29/22 14:00 - History of Present Illness Initial Comments: 62-year-old female with past nuchal history of lung cancer presents to the emergency room with reported abdominal pain. Patient's sees Dr. Justin. Recently had chemo in February. Presents today that she's had generalized abdominal pain, nausea and vomiting with difficulty eating. She denies fevers. No chest pain or shortness of breath. Patient had PET scan performed in February however has not received results. Next appointment with hematology is not until April. She denies metastatic disease. No hematemesis. Admits to constipation. Did take a stool softener last night. No changes in her urination. Patient arrives via EMS and was given 4 mg of Zofran. Denies any abnormal vaginal bleeding or discharge. No other alleviating, precipitating or modifying factors (Gianna Neville) - Related Data Home Medications Medication Instructions Recorded Confirmed Citalopram Hydrobromide 40 mg PO DAILY 02/16/17 02/16/22 [Citalopram HBr] Albuterol Inhaler [Ventolin Hfa 2 puff INHALATION RT-Q6H 02/25/21 02/16/22 Inhaler] Budesonide/Formoterol Fumarate 2 puff INHALATION RT-BID 02/25/21 02/16/22 [Symbicort 80-4.5 Mcg Inhaler] Gabapentin 300 mg PO BID 02/15/22 02/16/22 oxyCODONE-APAP 10-325MG [Percocet 1 tab PO Q6HR PRN 02/15/22 02/16/22 10-325 mg] Previous Rx's Medication Instructions Recorded Mag Hydrox/Al Hydrox/Simeth 30 ml PO BID PRN #30 ml 03/29/22 [Maalox] Ondansetron Odt [Zofran Odt] 4 mg PO Q8HR PRN 3 Days #9 tab 03/29/22 Allergies Allergy/AdvReac Type Severity Reaction Status Date / Time amoxicillin [Amoxicillin] Allergy Rash/Hives Verified 03/29/22 12:32 on entire body fentanyl Allergy Dyspnea Verified 03/29/22 12:32 Review of Systems ROS Other: All systems not noted in ROS Statement are negative. <Gianna Neville - Last Filed: 03/29/22 15:17> ROS Other: All systems not noted in ROS Statement are negative. <eBstKalin - Last Filed: 03/29/22 23:24> ROS Statement: Those systems with pertinent positive or pertinent negative responses have been documented in the HPI. Past Medical History Past Medical History: Cancer Additional Past Medical History / Comment(s): gallstones, arthritis, chronic back pain, past lt breast cancer, cataracts, lt frozen shoulder History of Any Multi-Drug Resistant Organisms: None Reported Past Surgical History: Section, Tubal Ligation Additional Past Surgical History / Comment(s): left breast biospy, left breast masectomy Past Anesthesia/Blood Transfusion Reactions: Motion Sickness Additional Past Anesthesia/Blood Transfusion Reaction / Comment(s): clausterphobia Past Psychological History: Anxiety, Depression Smoking Status: Former smoker Past Alcohol Use History: None Reported Past Drug Use History: Marijuana - Past Family History Father Family Medical History: Cancer Additional Family Medical History / Comment(s): liver cancer Mother History Unknown: Yes Additional Family Medical History / Comment(s): AAA <Gianna Neville - Last Filed: 03/29/22 15:17> General Exam Limitations: no limitations General appearance: alert, in no apparent distress Head exam: Present: atraumatic, normocephalic, normal inspection Eye exam: Present: normal appearance, PERRL, EOMI. Absent: scleral icterus, conjunctival injection, periorbital swelling ENT exam: Present: normal exam, mucous membranes moist Neck exam: Present: normal inspection. Absent: tenderness, meningismus, l ymphadenopathy Respiratory exam: Present: normal lung sounds bilaterally. Absent: respiratory distress, wheezes, rales, rhonchi, stridor Cardiovascular Exam: Present: regular rate, normal rhythm, normal heart sounds. Absent: systolic murmur, diastolic murmur, rubs, gallop, clicks GI/Abdominal exam: Present: soft, tenderness (Generalized), normal bowel sounds. Absent: distended, guarding, rebound, rigid Extremities exam: Present: normal inspection, full ROM, normal capillary refill. Absent: tenderness, pedal edema, joint swelling, calf tenderness Back exam: Present: normal inspection Neurological exam: Present: alert, oriented X3, CN II-XII intact Psychiatric exam: Present: normal affect, normal mood Skin exam: Present: warm, dry, intact, normal color. Absent: rash <PrimitivojairoGianna Kelvin - Last Filed: 03/29/22 15:17> Course Vital Signs 03/29/22 03/29/22 12:30 18:13 Temperature 98.1 F Pulse Rate 85 80 Respiratory 20 16 Rate Blood Pressure 113/60 132/66 O2 Sat by Pulse 96 95 Oximetry Medical Decision Making - Lab Data Result diagrams: 03/29/22 14:33 03/29/22 14:33 <Gianna Neville - Last Filed: 03/29/22 15:17> - Lab Data Result diagrams: 03/29/22 14:33 03/29/22 14:33 <Kalin Jewell - Last Filed: 03/29/22 23:24> - Medical Decision Making Upon arrival patient is placed into room 22. History and physical exam is performed. IV access is established. Pain and nausea medications are ordered. Patient also given a liter bolus of normal saline. Laboratory studies are reviewed. CT pending at this time. Patient will be signed out to Dr. Jewell for further disposition (Gianna Neville) Patient was signed out to me pending results of CT abdomen and pelvis. Patient has a history of lung cancer, presents for abdominal pain. Laboratory studies are unremarkable. CT reveals hepatic metastasis as well as lymphadenopathy. There are scattered nauseous metastasis. There is cholelithiasis without cholecystitis. I discussed the findings with the patient. She states that the liver and lymphadenopathy findings are known to her. She expresses understanding. She is feeling improved at this time. Recommended follow-up with her oncologist and PCP this week. She'll be discharged home at this time. Strict return precautions were discussed. I will provide the patient with a prescription for ODT Zofran, Maalox. I instructed the patient to follow up with their PCP in the next 1-3 days. I explained that the patient should return to the emergency department if they experience any worsening symptoms. Strict return precautions were discussed with the patient. The patient expressed understanding of these instructions. I answered all questions that the patient had. The patient was discharged home in good condition with their prescriptions and follow up information. (Kalin Jewell) - Lab Data Lab Results 03/29/22 03/29/22 03/29/22 Range/Units 14:33 14:33 14:33 WBC 5.4 (3.8-10.6) k/uL RBC 4.14 (3.80-5.40) m/uL Hgb 13.0 (11.4-16.0) gm/dL Hct 40.8 (34.0-46.0) % MCV 98.5 (80.0-100.0) fL MCH 31.5 (25.0-35.0) pg MCHC 32.0 (31.0-37.0) g/dL RDW 15.9 H (11.5-15.5) % Plt Count 220 (150-450) k/uL MPV 8.0 Neutrophils % 80 % Lymphocytes % 11 % Monocytes % 5 % Eosinophils % 1 % Basophils % 1 % Neutrophils # 4.3 (1.3-7.7) k/uL Lymphocytes # 0.6 L (1.0-4.8) k/uL Monocytes # 0.3 (0-1.0) k/uL Eosinophils # 0.1 (0-0.7) k/uL Basophils # 0.1 (0-0.2) k/uL Hypochromasia Slight Sodium 140 (137-145) mmol/L Potassium 4.2 (3.5-5.1) mmol/L Chloride 104 (98-107) mmol/L Carbon Dioxide 26 (22-30) mmol/L Anion Gap 10 mmol/L BUN 14 (7-17) mg/dL Creatinine 0.69 (0.52-1.04) mg/dL Est GFR (CKD-EPI)AfAm >90 (>60 ml/min/1.73 sqM) Est GFR (CKD-EPI)NonAf >90 (>60 ml/min/1.73 sqM) Glucose 104 H (74-99) mg/dL Plasma Lactic Acid Jama 0.8 (0.7-2.0) mmol/L Calcium 9.5 (8.4-10.2) mg/dL Total Bilirubin 0.3 (0.2-1.3) mg/dL AST 26 (14-36) U/L ALT 17 (4-34) U/L Alkaline Phosphatase 115 (38-126) U/L Total Protein 7.1 (6.3-8.2) g/dL Albumin 4.3 (3.5-5.0) g/dL Lipase 13 L (23-300) U/L Urine Color Urine Appearance (Clear) Urine pH (5.0-8.0) Ur Specific [place] (1.001-1.035) Urine Protein (Negative) Urine Glucose (UA) (Negative) Urine Ketones (Negative) Urine Blood (Negative) Urine Nitrite (Negative) Urine Bilirubin (Negative) Urine Urobilinogen (<2.0) mg/dL Ur Leukocyte Esterase (Negative) Urine RBC (0-5) /hpf Urine WBC (0-5) /hpf Ur Squamous Epith Cells (0-4) /hpf Urine Mucus (None) /hpf 03/29/22 Range/Units 17:09 WBC (3.8-10.6) k/uL RBC (3.80-5.40) m/uL Hgb (11.4-16.0) gm/dL Hct (34.0-46.0) % MCV (80.0-100.0) fL MCH (25.0-35.0) pg MCHC (31.0-37.0) g/dL RDW (11.5-15.5) % Plt Count (150-450) k/uL MPV Neutrophils % % Lymphocytes % % Monocytes % % Eosinophils % % Basophils % % Neutrophils # (1.3-7.7) k/uL Lymphocytes # (1.0-4.8) k/uL Monocytes # (0-1.0) k/uL Eosinophils # (0-0.7) k/uL Basophils # (0-0.2) k/uL Hypochromasia Sodium (137-145) mmol/L Potassium (3.5-5.1) mmol/L Chloride (98-107) mmol/L Carbon Dioxide (22-30) mmol/L Anion Gap mmol/L BUN (7-17) mg/dL Creatinine (0.52-1.04) mg/dL Est GFR (CKD-EPI)AfAm (>60 ml/min/1.73 sqM) Est GFR (CKD-EPI)NonAf (>60 ml/min/1.73 sqM) Glucose (74-99) mg/dL Plasma Lactic Acid [place] (0.7-2.0) mmol/L Calcium (8.4-10.2) mg/dL Total Bilirubin (0.2-1.3) mg/dL AST (14-36) U/L ALT (4-34) U/L Alkaline Phosphatase (38-126) U/L Total Protein (6.3-8.2) g/dL Albumin (3.5-5.0) g/dL Lipase (23-300) U/L Urine Color Yellow Urine Appearance Clear (Clear) Urine pH 5.5 (5.0-8.0) Ur Specific [place] 1.050 H (1.001-1.035) Urine Protein Negative (Negative) Urine Glucose (UA) Negative (Negative) Urine Ketones Trace H (Negative) Urine Blood Trace H (Negative) Urine Nitrite Negative (Negative) Urine Bilirubin Negative (Negative) Urine Urobilinogen <2.0 (<2.0) mg/dL Ur Leukocyte Esterase Negative (Negative) Urine RBC 3 (0-5) /hpf Urine WBC 1 (0-5) /hpf Ur Squamous Epith Cells <1 (0-4) /hpf Urine Mucus Rare H (None) /hpf Disposition <Gianna Neville - Last Filed: 03/29/22 15:17> Is patient prescribed a controlled substance at d/c from ED?: No Time of Disposition: 17:30 <Kalin Jewell - Last Filed: 03/29/22 23:24> Clinical Impression: Abdominal pain of unknown cause, Nausea and vomiting, History of cancer Disposition: HOME SELF-CARE Condition: Good Instructions (If sedation given, give patient instructions): Abdominal Pain (ED) Prescriptions: Mag Hydrox/Al Hydrox/Simeth [Maalox] 30 ml PO BID PRN #30 ml PRN Reason: Dyspepsia Ondansetron Odt [Zofran Odt] 4 mg PO Q8HR PRN 3 Days #9 tab PRN Reason: Nausea Referrals: Hector Peterson MD [Primary Care Provider] - 1-2 days
--- NOTE | 2022-03-29 16:20 | CT ---
EXAMINATION TYPE: CT abdomen pelvis w con CT DLP: 469.9 mGycm, Automated exposure control for dose reduction was used. DATE OF EXAM: 03/29/2022 3:50 PM COMPARISON: PET/CT 02/25/2022 CLINICAL INDICATION:Female, 62 years old with history of abdominal pain, cancer pt, vomiting; abdomin al pain, hx of breast ca TECHNIQUE: Standard CT of the abdomen and pelvis following the administration of 100 cc of Isovue 3 00 IV contrast material. Coronal and sagittal reformats were performed. FINDINGS: LOWER CHEST: Posterior dependent subsegmental atelectasis is noted. ABDOMEN LIVER: New peripherally enhancing hypodense lesions throughout the right hepatic lobe with largest me asuring up to 3.6 cm (series 201, image 18). GALLBLADDER AND BILE DUCTS: Cholelithiasis. No biliary ductal dilatation. Trace nonspecific perichole cystic fluid. PANCREAS: Unremarkable. SPLEEN: Top normal for size measuring 13.8 cm in cc dimension. Scattered calcified granulomas. ADRENAL GLANDS: Unremarkable. KIDNEYS AND URETERS: No hydronephrosis or renal calculi. Both kidneys enhance symmetrically. No suspi cious focal lesion. PELVIS BLADDER: Incompletely distended but grossly unremarkable. REPRODUCTIVE: Unremarkable. ABDOMEN & PELVIS STOMACH AND BOWEL: Stomach and duodenum are unremarkable. No focal wall thickening or surrounding in flammatory changes. No evidence of bowel obstruction. PERITONEUM: No evidence of pneumoperitoneum. Trace free fluid in the pelvis. No definitive peritoneal nodularity. VASCULATURE: Mild atherosclerotic calcifications are present throughout the abdominal aorta and its b ranches. No evidence of aortic aneurysm. MUSCULOSKELETAL: No acute osseous abnormalities. Mild retrolisthesis of L3 on L4 and L4 on L5. Scatte red sclerotic osseous metastasis redemonstrated throughout the visualized structures. LYMPH NODES: Conglomerate adenopathy in the periportal/peripancreatic region measuring 5.2 x 4.0 cm w ith encasement of the vessels. Additional enlarged aortic and pericaval lymphadenopathy with exam inc luding a 2.2 cm lymph node (series 201, image 19). SOFT TISSUE/ABDOMINAL WALL: Unremarkable IMPRESSION: 1. Disease progression with multiple new hepatic metastasis and increased size of pericaval/periaorti c/kala hepatis lymphadenopathy. 2. Similar scattered osseous metastasis. 3. Cholelithiasis.
[2022-03-29 17:21] LABS: Appearance,Urine Clear (Clear); Bilirubin,Urine Negative (Negative); Blood,Urine Trace (Negative); Color,Urine Yellow; Glucose,Urine (UA) Negative (Negative); Ketones,Urine Trace (Negative); Leukocyte Esterase,Urine Negative (Negative); Mucus,Urine Rare /hpf; Nitrite,Urine Negative (Negative); PH, Urine 5.5 (5.0-8.0); Protein,Urine Negative (Negative); RBC,Urine 3 /hpf (0-5); Squamous Epithelial Cell,Urine <1 /hpf (0-4); Urobilinogen,Urine <2.0 mg/dL (<2.0); WBC,Urine 1 /hpf (0-5)
[2022-03-29 18:14] VITALS: BP 132/66; PULSE 80; RESP 16
== END 2022-03-29 18:15 | disposition home or self-care (01) ==
LOC: EC 12:21
DX: R10.84 Generalized abdominal pain (principal); Z85.9 Personal history of malignant neoplasm, unspecified; F41.9 Anxiety disorder, unspecified; F32.A Depression, unspecified; Z87.891 Personal history of nicotine dependence; F12.90 Cannabis use, unspecified, uncomplicated; Z88.1 Allergy status to other antibiotic agents; Z88.6 Allergy status to analgesic agent; Z79.51 Long term (current) use of inhaled steroids; Z79.899 Other long term (current) drug therapy
CPT/HCPCS: 36415; 80053; 83605; 83690; 85025; 81001; 74177; 99284; 96374; 96375 ×2; 96361 ×3; J2270; J1200; J2765; Q9967

== ENCOUNTER 2022-04-04 15:08 | Inpatient (IN) | payer MEDICARE ==
[2022-04-04] MEDS ORDERED: ONDANSETRON 4 MG/2 ML VIAL IVP STA (16:18)
[2022-04-04] MEDS ORDERED: SODIUM CHLORIDE 0.9% 1,000 ML IV STA (16:18)
[2022-04-04] MEDS ORDERED: MORPHINE SULFATE 4 MG/ML SYRINGE IVP STA (16:22)
[2022-04-04 17:08] LABS: Basophils % (A) 0 %; Eosinophils # (A) 0.1 k/uL (0-0.7); Eosinophils % (A) 2 %; HCT 41.8 % (34.0-46.0); HGB 13.2 gm/dL (11.4-16.0); Hypochromasia Slight; Lymphocytes % (A) 17 %; MCH 30.5 pg (25.0-35.0); MCHC 31.6 g/dL (31.0-37.0); MCV 96.6 fL (80.0-100.0); Mean Platelet Volume 8.1; Monocytes # (A) 0.2 k/uL (0-1.0); Monocytes % (A) 4 %; Neutrophils # (A) 4.3 k/uL (1.3-7.7); Neutrophils % (A) 76 %; Platelet Count 222 k/uL (150-450); RBC 4.33 m/uL (3.80-5.40); RDW 15.6 % (11.5-15.5); WBC 5.6 k/uL (3.8-10.6)
--- NOTE | 2022-04-04 17:17 | XR ---
EXAMINATION TYPE: XR KUB DATE OF EXAM: 04/04/2022 COMPARISON: 04/14/2014 HISTORY: Abdominal pain TECHNIQUE: Single view upright FINDINGS: There is no sign of intestinal obstruction or pneumoperitoneum. Fecal pattern is normal. No evidence of a mass. IMPRESSION: Nonacute abdomen.
[2022-04-04 17:18] LABS: Partial Thromboplastin Time 25.4 sec (22.0-30.0); Prothrombin Time 10.8 sec (9.0-12.0)
[2022-04-04 17:19] LABS: ALT 20 U/L (4-34); AST 29 U/L (14-36); African American GFR (CKD) >90 (>60 ml/min/1.73 sqM); Albumin 4.2 g/dL (3.5-5.0); Alkaline Phosphatase 105 U/L (38-126); Amylase 50 U/L (30-110); Anion Gap 11 mmol/L; Blood Urea Nitrogen 13 mg/dL (7-17); Calcium 9.6 mg/dL (8.4-10.2); Carbon Dioxide 25 mmol/L (22-30); Chloride 102 mmol/L (98-107); Glucose 94 mg/dL (74-99); Lipase 10 U/L (23-300); Non-African American GFR(CKD) >90 (>60 ml/min/1.73 sqM); Potassium 4.1 mmol/L (3.5-5.1); Sodium 138 mmol/L (137-145); Total Bilirubin 0.4 mg/dL (0.2-1.3); Total Protein 6.9 g/dL (6.3-8.2)
--- NOTE | 2022-04-04 17:20 | XR ---
EXAMINATION TYPE: XR chest 2V DATE OF EXAM: 04/04/2022 COMPARISON: 11/08/2021 HISTORY: Chest pain TECHNIQUE: FINDINGS: Heart is normal. There is thoracic dextroscoliosis. There is right central venous catheter with tip in the superior vena cava. There is mild blunting of the left costophrenic angle. There are no hilar masses. There is pleural thickening at the left lung apex. There are some mild increased den sity in the frontal projection over the right lower lobe medially that could be developing infiltrate . IMPRESSION: There is pleural thickening left lung apex without change. Pleural diaphragmatic scarring left lung base without change. Normal heart. Possible developing infiltrate in the right lower lobe compared to the old exam.
[2022-04-04] MEDS ORDERED: AZITHROMYCIN 500 MG in SODIUM CHLORIDE 0.9% 250 ML IVPB STA (17:45)
[2022-04-04] MEDS ORDERED: NALOXONE 0.4 MG/ML 1 ML VIAL IV PRN (18:04)
--- NOTE | 2022-04-04 18:25 | ED ---
General Adult HPI - General Chief complaint: Nausea/Vomiting/Diarrhea Stated complaint: Weakness,Vomiting Time Seen by Provider: 04/04/22 16:07 Source: patient, RN notes reviewed, old records reviewed Mode of arrival: wheelchair - History of Present Illness Initial comments: I is a 62-year-old female with past medical history remarkable for metastatic lung cancer, currently on immunotherapy, chronic abdominal pain, who presents emergency Department complaining of her chronic abdominal pain. I did see the patient 2 weeks ago. Symptoms remained unchanged. She is now having a mild cough that she is uncertain if that is productive. Is also having episodes of nausea and nonbilious nonbloody emesis. Believe she is having reduced amounts of stooling which is similar to the other week as well. Has no appetite. Would like to be evaluated for dehydration. Was sent in by her oncologist for further evaluation. Denies any chest pain, shortness of breath. Denies any diarrhea. Denies any fevers. His no other acute complaints at this time. Scratch her pain as sharp, achy located over the right side of her abdomen. CT imaging last time did show known metastasis to the liver with lymph node involvement. No change in her symptoms at this time.Patient is no urinary complaints at this time. - Related Data Home Medications Medication Instructions Recorded Confirmed Citalopram Hydrobromide 40 mg PO DAILY 02/16/17 04/01/22 [Citalopram HBr] Albuterol Inhaler [Ventolin Hfa 2 puff INHALATION RT-Q6H 02/25/21 04/01/22 Inhaler] Budesonide/Formoterol Fumarate 2 puff INHALATION RT-BID 02/25/21 04/01/22 [Symbicort 80-4.5 Mcg Inhaler] Gabapentin 300 mg PO BID 02/15/22 04/01/22 oxyCODONE-APAP 10-325MG [Percocet 1 tab PO Q6HR PRN 02/15/22 04/01/22 10-325 mg] Atezolizumab [Tecentriq] 1,200 mg IV Q21D 04/04/22 04/04/22 Naloxone HCl [Narcan] 4 mg NASAL ONCE PRN 04/04/22 04/04/22 Previous Rx's Medication Instructions Recorded Ondansetron Odt [Zofran Odt] 4 mg PO Q8HR PRN 3 Days #9 tab 03/29/22 Allergies Allergy/AdvReac Type Severity Reaction Status Date / Time amoxicillin [Amoxicillin] Allergy Rash/Hives Verified 04/04/22 18:13 on entire body fentanyl Allergy Dyspnea, Verified 04/04/22 18:13 See comment Review of Systems ROS Statement: Those systems with pertinent positive or pertinent negative responses have been documented in the HPI. Review of Systems: CONST: Denies fever EYES: Denies blurry vision ENT: Denies nasal congestion C/V: Denies Chest pain RESP: Endorses cough GI: Endorses s abdominal pain : Denies dysuria SKIN: Denies rash. MSK: Denies joint pain. NEURO: Denies headache ROS Other: All systems not noted in ROS Statement are negative. Past Medical History Past Medical History: Cancer Additional Past Medical History / Comment(s): gallstones, arthritis, chronic back pain, past lt breast cancer, cataracts, lt frozen shoulder History of Any Multi-Drug Resistant Organisms: None Reported Past Surgical History: Section, Tubal Ligation Additional Past Surgical History / Comment(s): left breast biospy, left breast masectomy Past Anesthesia/Blood Transfusion Reactions: Motion Sickness Additional Past Anesthesia/Blood Transfusion Reaction / Comment(s): clausterphobia Past Psychological History: Anxiety, Depression Smoking Status: Former smoker - Past Family History Father Family Medical History: Cancer Additional Family Medical History / Comment(s): liver cancer Mother History Unknown: Yes Additional Family Medical History / Comment(s): AAA General Exam - General Exam Comments Initial Comments: General: Appears in no acute distress. HEAD: Normal with no signs of head trauma. EYES: PERRLA, EOMI, conjunctiva normal, no discharge. ENT: Hearing grossly intact, normal oropharynx. Mildly dry mucous members. RESPIRATORY: Clear breath sounds bilaterally. No wheezes, rales, or rhonchi. No hypoxia. No respiratory distress. C/V: Regular rate and rhythm. S1 and S2 auscultated, no edema, peripheral pulses 2+ and intact throughout ABD: Abdomen is soft, nondistended. Tender to palpation over The right side of her abdomen. No guarding. No rebound tenderness. No peritoneal signs. No CVA tenderness to percussion. EXT: Normal range of motion, no obvious deformity SKIN: No rashes or lesions observed on exposed skin. NEURO: Alert and oriented 4. No focal deficits. Course Vital Signs 04/04/22 04/04/22 15:12 17:44 Temperature 98.6 F Pulse Rate 111 H 84 Respiratory 18 18 Rate Blood Pressure 102/64 94/56 O2 Sat by Pulse 96 94 L Oximetry Medical Decision Making - Medical Decision Making Based on the patient's presentation and physical exam, I'm concerned for dehydration as well as possible acute on chronic abdominal discomfort. Symptoms are seemingly to be all chronic for the patient. His repeat presenting with identical symptoms to last time. Patient will likely be admitted, however we will obtain abdominal laboratory studies. We'll obtain x-rays. She was in agreement this plan. She'll be symptomatically treated with IV analgesia, IV medications, IV fluids. EKG shows no signs of acute ischemia. Chest x-ray shows possible developing right lower lobe pneumonia. Abdominal x-ray shows no acute intra-abdominal process. Laboratory studies are unremarkable. Urine studies are pending at this time. On reevaluation, patient is still complaining of pain. She was redosed pain meds. Discussed results with her, and due to her mild cough, we will cover her for community acquired pneumonia with Rocephin and azithromycin. I would like to admit her to the hospital to have oncology evaluate her. She was in agreement this plan. Will be admitted for intractable abdominal pain. His were sent. Vital signs remained within normal limits. I spoke with the admitting physician, [facility] Dr. See who accepted the patient. Oncology was consulted. - Lab Data Result diagrams: 04/04/22 16:53 04/04/22 16:53 Lab Results 04/04/22 04/04/22 04/04/22 Range/Units 16:53 16:53 16:53 WBC 5.6 (3.8-10.6) k/uL RBC 4.33 (3.80-5.40) m/uL Hgb 13.2 (11.4-16.0) gm/dL Hct 41.8 (34.0-46.0) % MCV 96.6 (80.0-100.0) fL MCH 30.5 (25.0-35.0) pg MCHC 31.6 (31.0-37.0) g/dL RDW 15.6 H (11.5-15.5) % Plt Count 222 (150-450) k/uL MPV 8.1 Neutrophils % 76 % Lymphocytes % 17 % Monocytes % 4 % Eosinophils % 2 % Basophils % 0 % Neutrophils # 4.3 (1.3-7.7) k/uL Lymphocytes # 1.0 (1.0-4.8) k/uL Monocytes # 0.2 (0-1.0) k/uL Eosinophils # 0.1 (0-0.7) k/uL Basophils # 0.0 (0-0.2) k/uL Hypochromasia Slight PT 10.8 (9.0-12.0) sec INR 1.0 (<1.2) APTT 25.4 (22.0-30.0) sec Sodium 138 (137-145) mmol/L Potassium 4.1 (3.5-5.1) mmol/L Chloride 102 (98-107) mmol/L Carbon Dioxide 25 (22-30) mmol/L Anion Gap 11 mmol/L BUN 13 (7-17) mg/dL Creatinine 0.67 (0.52-1.04) mg/dL Est GFR (CKD-EPI)AfAm >90 (>60 ml/min/1.73 sqM) Est GFR (CKD-EPI)NonAf >90 (>60 ml/min/1.73 sqM) Glucose 94 (74-99) mg/dL Calcium 9.6 (8.4-10.2) mg/dL Total Bilirubin 0.4 (0.2-1.3) mg/dL AST 29 (14-36) U/L ALT 20 (4-34) U/L Alkaline Phosphatase 105 (38-126) U/L Total Protein 6.9 (6.3-8.2) g/dL Albumin 4.2 (3.5-5.0) g/dL Amylase 50 (30-110) U/L Lipase 10 L (23-300) U/L - EKG Data -: EKG Interpreted by Me EKG Comments: 12-lead Electrocardiogram Interpretation Note EKG was reviewed and interpreted by myself. 12-lead ECG performed at 1739 is interpreted by me as revealing normal sinus rhythm at a rate of 67 beats per minute. [place] is normal. DC interval is 136 ms, QRS duration is 101 ms, QTc is 420 ms.. There were no ST or T wave abnormalities to suggest myocardial ischemia or injury. R wave progression across the precordium was satisfactory. B y my interpretation this EKG is non-diagnostic for acute ischemia. Disposition Clinical Impression: Intractable abdominal pain, Pneumonia, Dehydration, History of cancer, Chronic abdominal pain Disposition: ADMITTED IP TO THIS HOSP Condition: Stable Time of Disposition: 17:50
[2022-04-04] MEDS: SODIUM CHLORIDE 0.9% 1,000 ML IV SCH (18:34)
[2022-04-04] MEDS ORDERED: ALBUTEROL NEBULIZED 2.5 MG/3 ML INHALATION PRN (19:07)
[2022-04-04 19:46] LABS: Appearance,Urine Clear (Clear); Bilirubin,Urine Negative (Negative); Blood,Urine Negative (Negative); Color,Urine Yellow; Glucose,Urine (UA) Negative (Negative); Ketones,Urine 1+ (Negative); Leukocyte Esterase,Urine Negative (Negative); Nitrite,Urine Negative (Negative); PH, Urine 5.5 (5.0-8.0); Protein,Urine Negative (Negative); Specific Gravity,Urine 1.019 (1.001-1.035); Urobilinogen,Urine <2.0 mg/dL (<2.0)
[2022-04-04] MEDS ORDERED: ALBUTEROL NEBULIZED 2.5 MG/3 ML INHALATION SCH (20:00)
[2022-04-04] MEDS: ALBUTEROL NEBULIZED 2.5 MG/3 ML INHALATION SCH (20:43)
[2022-04-04] MEDS: SYMBICORT 80-4.5 MCG INHALER INHALATION SCH (20:43)
--- NOTE | 2022-04-04 21:16 | P.HPIM ---
History of Present Illness H&P Date: 04/04/22 Chief Complaint: Abdominal pain 62 years old lady with past medical history of depression and metastatic lung cancer currently on immunotherapy she presents to the emergency room with chief complaint of chronic abdominal pain, nausea and vomiting, cough with phlegm. The patient stated that she has been having chronic abdominal pain mainly in the right lower quadrant area 6 out of 10 in intensity started about 10 days ago, the patient also stated that she has been having nausea and vomiting along with the eating in the last few days. She stated she had URI a few days ago then she started having cough with sputum production. In the ED had EKG was within normal limits Chest x-ray showed possible infiltrate in the right lower lung Lacerated within normal limits Her blood pressure was 102/64 and she was slightly tachycardic heart rate was 111 improved after IV fluids. Review of Systems A 14 point review systems was assessed patient was only positive for those described in HPI Past Medical History Past Medical History: Cancer Additional Past Medical History / Comment(s): gallstones, arthritis, chronic back pain, past lt breast cancer, cataracts, lt frozen shoulder History of Any Multi-Drug Resistant Organisms: None Reported Past Surgical History: Section, Tubal Ligation Additional Past Surgical History / Comment(s): left breast biospy, left breast masectomy Past Anesthesia/Blood Transfusion Reactions: Motion Sickness Additional Past Anesthesia/Blood Transfusion Reaction / Comment(s): clausterphobia Past Psychological History: Anxiety, Depression Smoking Status: Former smoker - Past Family History Father Family Medical History: Cancer Additional Family Medical History / Comment(s): liver cancer Mother History Unknown: Yes Additional Family Medical History / Comment(s): AAA Medications and Allergies Home Medications Medication Instructions Recorded Confirmed Type Citalopram Hydrobromide 40 mg PO DAILY 02/16/17 04/04/22 History [Citalopram HBr] Albuterol Inhaler [Ventolin Hfa 2 puff INHALATION RT-Q6H 02/25/21 04/04/22 History Inhaler] Budesonide/Formoterol Fumarate 2 puff INHALATION RT-BID 02/25/21 04/04/22 History [Symbicort 80-4.5 Mcg Inhaler] Gabapentin 300 mg PO BID 02/15/22 04/04/22 History oxyCODONE-APAP 10-325MG [Percocet 1 tab PO Q4H PRN 02/15/22 04/04/22 History 10-325 mg] Ondansetron Odt [Zofran Odt] 4 mg PO Q8HR PRN 3 Days #9 tab 03/29/22 04/04/22 Rx Atezolizumab [Tecentriq] 1,200 mg IV Q21D 04/04/22 04/04/22 History Naloxone HCl [Narcan] 4 mg NASAL ONCE PRN 04/04/22 04/04/22 History Allergies Allergy/AdvReac Type Severity Reaction Status Date / Time amoxicillin [Amoxicillin] Allergy Rash/Hives Verified 04/04/22 18:13 on entire body fentanyl Allergy Dyspnea, Verified 04/04/22 18:13 See comment Physical Exam Vitals: Vital Signs Temp Pulse Resp BP Pulse Ox 04/04/22 17:44 84 18 94/56 94 L 04/04/22 15:12 98.6 F 111 H 18 102/64 96 Intake and Output 04/04/22 04/04/22 04/04/22 06:59 14:59 22:59 Other: Weight 50.802 kg General: [non toxic], [ no distress], [appears at stated age] Derm: [warm], [dry] Head: [atraumatic], [normocephalic], [symmetric] Eyes: [EOMI], [no lid lag], [anicteric sclera] Mouth: [no lip lesion], [mucus membranes moist] Cardiovascular: [S1S2 reg], [no murmur], [positive posterior tibial pulse bilateral], Lungs: [good air entry bilaterally, crackles heard in the right lower lung field, [no rhonchi, no rales] , [no accessory muscle use] Abdominal: [soft], [ slight tenderness with palpation of right lower quadrant of abdomen], [no guarding], [no appreciable organomegaly] Ext: [no gross muscle atrophy], [no edema], [no contractures] Neuro: [ CN II-XI grossly intact], [no focal neuro deficits] Psych: [Alert], [oriented], [appropriate affect] Results CBC & Chem 7: 04/04/22 16:53 04/04/22 16:53 Labs: Abnormal Lab Results - Last 24 Hours (Table) 04/04/22 04/04/22 04/04/22 Range/Units 16:53 16:53 19:31 RDW 15.6 H (11.5-15.5) % Lipase 10 L (23-300) U/L Urine Ketones 1+ H (Negative) Assessment and Plan Assessment: Metastatic lung cancer on immunotherapy Patient currently on immunotherapy Most recent CT abdomen showed disease progression with new hepatic metastasis or lymphadenopathy was scattered osseous metastasis Consulted oncology appreciated recommendations Community-acquired pneumonia Chest x-ray showed the right lower lung infiltrate Crackles appreciated by physical exam Started patient on ceftriaxone and azithromycin Depression Resume citalopram Intractable nausea and vomiting Continue IV fluids and Zofran Chronic abdominal pain Pain control DVT prophylaxis: Subcutaneous heparin CODE STATUS: Full code Anticipated length of stay less than [address]: Home Follow a total of 40 minutes was spent on the care of this complex patient more than 50% of the time was spent in counseling and care coordination
[2022-04-04] MEDS: polyethylene glycoL 3350 17 GM POWD.PACK PO SCH (22:13)
[2022-04-04] MEDS: MORPHINE SULFATE 4 MG/ML SYRINGE IVP PRN (22:14)
[2022-04-04] MEDS: GABAPENTIN 300 MG CAP PO SCH (22:14)
[2022-04-04] MEDS: HEPARIN SODIUM,PORCINE/PF 5,000 UNIT/0.5 ML SYRINGE SQ SCH (23:46)
[2022-04-05] MEDS: SODIUM CHLORIDE 0.9% 1,000 ML IV SCH ×3 (05:01→17:05)
[2022-04-05] MEDS: MORPHINE SULFATE 4 MG/ML SYRINGE IVP PRN ×3 (06:15→20:34)
[2022-04-05] MEDS: ALBUTEROL NEBULIZED 2.5 MG/3 ML INHALATION SCH ×4 (07:25→21:12)
[2022-04-05] MEDS: SYMBICORT 80-4.5 MCG INHALER INHALATION SCH ×2 (07:25→21:12)
[2022-04-05] MEDS: polyethylene glycoL 3350 17 GM POWD.PACK PO SCH (07:33)
[2022-04-05] MEDS: HEPARIN SODIUM,PORCINE/PF 5,000 UNIT/0.5 ML SYRINGE SQ SCH ×3 (07:33→23:57)
[2022-04-05] MEDS: CITALOPRAM HYDROBROMIDE 20 MG TAB PO SCH (07:33)
[2022-04-05] MEDS: GABAPENTIN 300 MG CAP PO SCH ×2 (07:33→20:33)
[2022-04-05] MEDS ORDERED: bisacodyL 10 MG SUPP RECTAL STA (09:54)
--- NOTE | 2022-04-05 10:02 | P.PN ---
Subjective Progress Note Date: 04/05/22 Hospital course: Patient is a very pleasant 62-year-old female with a past medical history of metastatic lung cancer currently undergoing immunotherapy.problem department with complaint of increased chronic abdominal pain, nausea, vomiting, cough, and phlegm production. the patient underwent full evaluation in the emergency department. CBC, coags, and CMP were unremarkable. Urinalysis is negative for infection. EKG showing sinus rhythm at 67 bpm. chest x-ray revealing possible d eveloping infiltrate in the right lower lobe and pleural thickening of left lung apex. KUB negative for acute process. Patient was admitted under services of consultation oncology. Physical exam: Pt seen at bedside this morning. she reports improvement of previously reported nausea and vomiting and feeling better since receiving IV fluids. Patient states even abdominal pain seems more controlled today and denies having any new complaints. Vital signs reviewed and stable. General: Nontoxic, no distress and appears stated age. Thin Derm: Skin warm and dry, normal coloration for ethnicity. Head: Atraumatic, normocephalic and symmetric. Eyes: EOMs intact, no lid lag, and anicteric sclera Mouth: no lip lesions, mucus membranes moist Cardiovascular: regular rate and rhythm with normal S1S2, no murmur, positive posterior tibial pulses bilaterally, and cap refill < 2 seconds. Lungs: Respirations even, regular, and unlabored on room air. Lungs with bibasilar crackles otherwise no rhonchi, no rales, and no wheezing with no accessory muscle usage. Abdominal: soft, nontender to palpation, no guarding, no appreciable organomegaly Ext: ROM intact. No gross muscle atrophy, no edema, no contractures Neuro: Speech clear, face symmetrical and CN II-XII grossly intact with no noted focal neuro deficits Psych: Alert and oriented to person, place, time, and situation. Appropriate and pleasant affect. Assessment and Plan of Care: Metastatic lung cancer on immunotherapy -Patient currently on immunotherapy -Most recent CT abdomen showed disease progression with new hepatic metastasis or lymphadenopathy was scattered osseous metastasis -Consulted oncology appreciated recommendations Community-acquired pneumonia -Chest x-ray showed the right lower lung infiltrate -Crackles appreciated by physical exam -Continue ceftriaxone and azithromycin Depression -Resume citalopram Intractable nausea and vomiting -Continue IV fluids and Zofran Chronic abdominal pain -Pain control CODE STATUS: full code DVT prophylaxis: Heparin Discussed with: Pt and RN Anticipated discharge date: likely tomorrow morning Anticipated discharge place: Home A total of 35 minutes was spent on the care of this complex patient more than 50% of the time was spent in counseling and care coordination. Objective - Vital Signs Vital signs: Vital Signs Temp 97.5 F L 04/05/22 07:40 Pulse 88 04/05/22 07:40 Resp 17 04/05/22 07:40 BP 94/60 04/05/22 07:40 Pulse Ox 97 04/05/22 07:40 FiO2 Intake & Output 04/04/22 04/05/22 04/05/22 18:59 06:59 18:59 Weight 50.802 kg 50.802 kg - Labs CBC & Chem 7: 04/05/22 07:24 04/05/22 07:24 Labs: Abnormal Lab Results - Last 24 Hours (Table) 04/04/22 04/04/22 04/04/22 Range/Units 16:53 16:53 19:31 RDW 15.6 H (11.5-15.5) % Lipase 10 L (23-300) U/L Urine Ketones 1+ H (Negative)
[2022-04-05 11:04] LABS: Basophils # (A) 0.04 X 10*3/uL (0.00-0.10); Eosinophils # (A) 0.14 X 10*3/uL (0.04-0.35); Eosinophils % (A) 3.5 %; HCT 36.2 % (37.2-46.3); HGB 11.6 g/dL (12.0-15.0); Immature Grans, Automated 0.3 %; Lymphocytes # (A) 0.92 X 10*3/uL (0.90-5.00); MCH 30.9 pg (27.0-32.0); MCV 96.3 fL (80.0-97.0); Mean Platelet Volume 10.3 fL (9.5-12.2); Monocytes # (A) 0.29 X 10*3/uL (0.20-1.00); Monocytes % (A) 7.3 %; NRBC Per 100 WBC 0 /100 WBCS (0.0-0.0); Neutrophils % (A) 64.9 %; Platelet Count 202 X 10*3/uL (140-440); RBC 3.76 X 10*6/uL (4.10-5.20); RDW 14.6 % (11.5-14.5)
[2022-04-05 11:21] LABS: Anion Gap 10.7 mmol/L (10.00-18.00); BUN/Creat Ratio 13.83 Ratio (12.00-20.00); Blood Urea Nitrogen 8.3 mg/dL (9.0-27.0); Calcium 8.8 mg/dL (8.7-10.3); Carbon Dioxide 23.3 mmol/L (20.0-27.5); Non-African American GFR(CKD) 98.4 (60.0-200.0); Potassium 3.9 mmol/L (3.5-5.5)
[2022-04-05 14:24] VITALS: BMI 18.6
[2022-04-05] MEDS: AZITHROMYCIN 500 MG in SODIUM CHLORIDE 0.9% 250 ML IVPB SCH (16:57)
--- NOTE | 2022-04-05 18:17 | P.CONS ---
History of Present Illness - Reason for Consult Consult date: 04/05/22 lung cancer Requesting physician: Kalin Jewell - Chief Complaint N,V,D - History of Present Illness Ms. Hanson is a very pleasant 62-year-old female patient of Dr. Thomas all [facility]. Patient's initial history began in 2015, diagnosed with left breast cancer, hormone receptor negative, HER-2 positive. She completed TCHP, had mastectomy in October 2016, had an excellent response, PET showed no activity in the left axilla or bone metastases, path showed no viable tumor in the left breast or axilla. She did NOT complete 1 year on Herceptin, she was lost to f/u and did not return to [facility] until 11/2020. 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 She was started on chemotherapy with addition of tecentric, completing 4 cycles of chemotherapy 01/27, and tecentric 02/27 through 06/29. Patient was again lost to follow-up, she came back in about October 2021. She had responded well previously so the patient was started back on carboplatin and etoposide, 3 cycles. Follow-up PET scan 02/25/2022, showed some progression of disease in the liver. Patient is now status post 1 cycle of tecentric. Patient states that for about 2-3 weeks was not feeling really well. She had some constipation, took laxatives and that led to diarrhea. She had been noticing an increase in cough and some throwing up but, she feels it was all p hlegm. She denied having any fevers, chills, chest pain, abdominal pain or cramping, painful stools, hematochezia or melena. Is reporting pain in the right upper quadrant- this correlates with right lower lobe pneumonia and also where she had some recent progression in liver metastases status-she is post first cycle of IO therapy. Patient is reporting feeling pretty good today, she is tolerating oral intake. Review of Systems 10 point review of systems is negative except as stated in HPI Past Medical History Past Medical History: Cancer Additional Past Medical History / Comment(s): gallstones, arthritis, chronic back pain, past lt breast cancer, cataracts, lt frozen shoulder History of Any Multi-Drug Resistant Organisms: None Reported Past Surgical History: Section, Tubal Ligation Additional Past Surgical History / Comment(s): left breast biospy, left breast masectomy Past Anesthesia/Blood Transfusion Reactions: Motion Sickness Additional Past Anesthesia/Blood Transfusion Reaction / Comm: clausterphobia Past Psychological History: Anxiety, Depression Smoking Status: Former smoker Past Alcohol Use History: None Reported Additional Past Alcohol Use History / Comment(s): started smoking at age 16 smokes 1 to 1.5 ppd. patient states she smokes less than 1/day Past Drug Use History: Marijuana - Past Family History Father Family Medical History: Cancer Additional Family Medical History / Comment(s): liver cancer Mother History Unknown: Yes Additional Family Medical History / Comment(s): AAA Medications and Allergies Home Medications Medication Instructions Recorded Confirmed Type Citalopram Hydrobromide 40 mg PO DAILY 02/16/17 04/04/22 History [Citalopram HBr] Albuterol Inhaler [Ventolin Hfa 2 puff INHALATION RT-Q6H 02/25/21 04/04/22 History Inhaler] Budesonide/Formoterol Fumarate 2 puff INHALATION RT-BID 02/25/21 04/04/22 History [Symbicort 80-4.5 Mcg Inhaler] Gabapentin 300 mg PO BID 02/15/22 04/04/22 History oxyCODONE-APAP 10-325MG [Percocet 1 tab PO Q4H PRN 02/15/22 04/04/22 History 10-325 mg] Ondansetron Odt [Zofran Odt] 4 mg PO Q8HR PRN 3 Days #9 tab 03/29/22 04/04/22 Rx Atezolizumab [Tecentriq] 1,200 mg IV Q21D 04/04/22 04/04/22 History Naloxone HCl [Narcan] 4 mg NASAL ONCE PRN 04/04/22 04/04/22 History Allergies Allergy/AdvReac Type Severity Reaction Status Date / Time amoxicillin [Amoxicillin] Allergy Rash/Hives Verified 04/04/22 18:13 on entire body fentanyl Allergy Dyspnea, Verified 04/04/22 18:13 See comment Physical Exam Vitals: Vital Signs Temp Pulse Pulse Resp BP BP Pulse Ox 04/05/22 07:40 97.5 F L 88 17 94/60 97 04/05/22 07:35 98 04/05/22 07:25 96 04/05/22 02:32 98.4 F 80 17 108/65 94 L 04/04/22 22:23 98.4 F 91 16 106/66 91 L 04/04/22 17:44 84 18 94/56 94 L 04/04/22 15:12 98.6 F 111 H 18 102/64 96 Intake and Output 04/04/22 04/05/22 04/05/22 22:59 06:59 14:59 Other: Weight 50.802 kg 50.802 kg - Constitutional General appearance: cooperative, no acute distress, thin - EENT Eyes: anicteric sclerae, EOMI, poor dentition ENT: hearing grossly normal - Neck Neck: no lymphadenopathy - Respiratory Respiratory: bilateral: CTA - Cardiovascular Rhythm: regular Heart sounds: normal: S1, S2 Abnormal Heart Sounds: no systolic murmur, no diastolic murmur, no rub, no S3 Gallop, no S4 Gallop, no click, no other leg Peripheral Edema: bilateral: None - Gastrointestinal General gastrointestinal: no absent bowel sounds, no decreased bowel sounds, no distended, no hepatomegaly, no hyperactive bowel sounds, normal bowel sounds, no organomegaly, no rigid, no scaphoid, soft, no splenomegaly, no tenderness, no umbilical hernia, no ventral hernia - Integumentary Integumentary: normal - Neurologic Neurologic: CNII-XII intact - Musculoskeletal Musculoskeletal: strength equal bilaterally - Psychiatric Psychiatric: A&O x's 3, appropriate affect, intact judgment & insight Results CBC & Chem 7: 04/05/22 07:24 04/05/22 07:24 Labs: Abnormal Lab Results - Last 24 Hours (Table) 04/04/22 04/04/22 04/04/22 Range/Units 16:53 16:53 19:31 RDW 15.6 H (11.5-15.5) % Lipase 10 L (23-300) U/L Urine Ketones 1+ H (Negative) Chest x-ray: report reviewed Assessment and Plan (1) Nausea and vomiting Current Visit: Yes Status: Acute Priority: High Code(s): R11.2 - NAUSEA WITH VOMITING, UNSPECIFIED SNOMED Code(s): 90076812 (2) Pneumonia Current Visit: Yes Status: Acute Priority: High Code(s): J18.9 - PNEUMONIA, UNSPECIFIED ORGANISM SNOMED Code(s): 768510054 (3) History of lung cancer Current Visit: No Status: Chronic Priority: Medium Code(s): Z85.118 - PERSONAL HISTORY OF MALIGNANT NEOPLASM OF BRONCHUS AND LUNG SNOMED Code(s): 701180847 (4) Hx of breast cancer Current Visit: No Status: Chronic Priority: Medium Code(s): Z85.3 - PERSONAL HISTORY OF MALIGNANT NEOPLASM OF BREAST SNOMED Code(s): 637009590 Plan: Patient reporting that her symptoms are much improved since admission. She has not had any further vomiting, tolerating oral intake. Patient's treatment was recently changed as she had disease progression in the liver noted on PET scan in Feb. She is s/p 1st cycle of IO therapy. her symptoms resolved with conservative management and treatment of a right lower lobe infiltrate/pneumonia. No recent to suspect that this is immunotherapy side effects at this time. Okay from a Heme/Oncology standpoint for discharge once patient is cleared by Attending and consulting Physicians. attests: I have seen and examined patient, performed H&P, developed impression and plan of care. Discussed with dictator. Agree with documentation, dictated as a scribe
[2022-04-06] MEDS: ONDANSETRON 4 MG/2 ML VIAL IVP PRN ×2 (02:52→21:23)
[2022-04-06] MEDS: SODIUM CHLORIDE 0.9% 1,000 ML IV SCH ×3 (03:00→16:51)
[2022-04-06] MEDS: MORPHINE SULFATE 4 MG/ML SYRINGE IVP PRN ×3 (05:51→20:12)
[2022-04-06] MEDS ORDERED: ACETAMINOPHEN TAB 325 MG TAB PO STA (06:01)
[2022-04-06] MEDS: SYMBICORT 80-4.5 MCG INHALER INHALATION SCH ×2 (07:15→21:30)
[2022-04-06] MEDS: ALBUTEROL NEBULIZED 2.5 MG/3 ML INHALATION SCH ×4 (07:15→21:30)
[2022-04-06] MEDS: CITALOPRAM HYDROBROMIDE 20 MG TAB PO SCH (07:52)
[2022-04-06] MEDS: GABAPENTIN 300 MG CAP PO SCH ×2 (07:53→20:12)
[2022-04-06] MEDS: polyethylene glycoL 3350 17 GM POWD.PACK PO SCH (07:53)
[2022-04-06] MEDS: HEPARIN SODIUM,PORCINE/PF 5,000 UNIT/0.5 ML SYRINGE SQ SCH ×2 (07:53→16:51)
--- NOTE | 2022-04-06 14:01 | P.PN ---
Subjective Progress Note Date: 04/06/22 Principal diagnosis: pneumonia, dehydration, non-small cell lung cancer In follow-up today patient is reporting tolerating limited oral intake, mostly water, soft foods. Denies worsening cough or shortness of breath. She does report today persistent diarrhea. She states that she was constipated and then was given medications to treat unfortunately, leading to diarrhea. She is reporting frequent stools. Denies rectal pain or blood or mucus, maybe some very mild abdominal discomfort, lower abdomen. Objective - Vital Signs Vital signs: Vital Signs Temp 98.6 F 04/06/22 13:49 Pulse 90 04/06/22 13:49 Resp 14 04/06/22 13:49 BP 116/72 04/06/22 13:49 Pulse Ox 92 L 04/06/22 13:49 FiO2 Intake & Output 04/05/22 04/06/22 04/06/22 18:59 06:59 18:59 Weight 50.802 kg Other: Voiding Method Toilet # Voids 5 4 - Constitutional General appearance: Present: cooperative, no acute distress, thin - EENT Eyes: Present: anicteric sclerae, EOMI, poor dentition ENT: Present: hearing grossly normal - Respiratory Respiratory: bilateral: CTA - Cardiovascular Rhythm: regular Heart sounds: normal: S1, S2 Abnormal Heart Sounds: Absent: systolic murmur, diastolic murmur, rub, S3 Gallop, S4 Gallop, click, other - Peripheral edema leg Peripheral Edema: bilateral: None - Gastrointestinal General gastrointestinal: Present: normal bowel sounds, soft, tenderness (mild, RLQ ). Absent: absent bowel sounds, decreased bowel sounds, distended, hepatomegaly, hyperactive bowel sounds, organomegaly, rigid, scaphoid, splenomegaly, umbilical hernia, ventral hernia - Neurologic Neurologic: Present: CNII-XII intact - Musculoskeletal Musculoskeletal: Present: generalized weakness - Psychiatric Psychiatric: Present: A&O x's 3, appropriate affect, intact judgment & insight - Labs CBC & Chem 7: 04/05/22 07:24 04/05/22 07:24 Labs: Microbiology - Last 24 Hours (Table) 04/04/22 18:20 Blood Culture - Preliminary Blood No Growth after 24 hours 04/04/22 18:05 Blood Culture - Preliminary Blood No Growth after 24 hours Assessment and Plan (1) Nausea and vomiting Current Visit: Yes Status: Acute Priority: High Code(s): R11.2 - NAUSEA WITH VOMITING, UNSPECIFIED SNOMED Code(s): 60104423 (2) Pneumonia Current Visit: Yes Status: Acute Priority: High Code(s): J18.9 - PNEUMONIA, UNSPECIFIED ORGANISM SNOMED Code(s): 399957061 (3) History of lung cancer Current Visit: No Status: Chronic Priority: Medium Code(s): Z85.118 - PERSONAL HISTORY OF MALIGNANT NEOPLASM OF BRONCHUS AND LUNG SNOMED Code(s): 437075105 (4) Hx of breast cancer Current Visit: No Status: Chronic Priority: Medium Code(s): Z85.3 - PERSONAL HISTORY OF MALIGNANT NEOPLASM OF BREAST SNOMED Code(s): 939521661 Plan: No further vomiting. Patient reporting diarrhea though. Have asked for the volume to be collected and recorded as well as the and number of stools the patient is having. I see miralax is on med list, there is no documented BM. Not sure what is happening, pending stool volume and #, will review and f/u in AM. Did not initially have concern for IO SE but, if she is she having persistent diarrhea, may need to consider steroids. Patient's abdomen is not bloated or tender to palpation. Patient's treatment was recently changed as she had disease progression in the liver noted on PET scan in Feb. She is s/p 1st cycle of IO therapy. Most admitting symptoms have improved with medical management and treatment, diarrhea persists, see above for plan. Medical Onc f/u appt in DC plan
--- NOTE | 2022-04-06 14:09 | P.PN ---
Subjective Progress Note Date: 04/06/22 Patient reports ongoing abdominal pain and diarrhea. Tolerating by mouth. Denies fevers, chills. Gen: awake, alert HEENT: normocephalic, atraumatic, good hearing acuity, moist mucous membranes Resp: good air exchange, breathing comfortably with no accessory muscle use CVS: good distal perfusion x 4, GI: soft, diffusely tender to palpation, ND : no SPT, no CVAT, whiting catheter not present MSK: no pitting edema, no clubbing Neuro: non-focal, moving all extremities Psych: cooperative, euthymic mood Assessment/plan: Metastatic lung cancer on immunotherapy -Patient currently on immunotherapy -Most recent CT abdomen showed disease progression with new hepatic metastasis or lymphadenopathy was scattered osseous metastasis -Consulted oncology appreciated recommendations Community-acquired pneumonia -Chest x-ray showed the right lower lung infiltrate -Continue ceftriaxone and azithromycin, total 7 day course Depression -Resume citalopram Intractable nausea and vomiting -Continue IV fluids and Zofran Chronic abdominal pain -Pain control CODE STATUS: full code DVT prophylaxis: Heparin Anticipated discharge date: likely tomorrow morning Anticipated discharge place: Home Objective - Vital Signs Vital signs: Vital Signs Temp 98.6 F 04/06/22 13:49 Pulse 90 04/06/22 13:49 Resp 14 04/06/22 13:49 BP 116/72 04/06/22 13:49 Pulse Ox 92 L 04/06/22 13:49 FiO2 Intake & Output 04/05/22 04/06/22 04/06/22 18:59 06:59 18:59 Weight 50.802 kg Other: Voiding Method Toilet # Voids 5 4 - Labs CBC & Chem 7: 04/05/22 07:24 04/05/22 07:24 Labs: Microbiology - Last 24 Hours (Table) 04/04/22 18:20 Blood Culture - Preliminary Blood No Growth after 24 hours 04/04/22 18:05 Blood Culture - Preliminary Blood No Growth after 24 hours
[2022-04-06] MEDS: AZITHROMYCIN 500 MG in SODIUM CHLORIDE 0.9% 250 ML IVPB SCH (16:52)
[2022-04-07] MEDS: SODIUM CHLORIDE 0.9% 1,000 ML IV SCH ×3 (00:27→16:35)
[2022-04-07] MEDS: HEPARIN SODIUM,PORCINE/PF 5,000 UNIT/0.5 ML SYRINGE SQ SCH ×3 (00:27→16:35)
[2022-04-07] MEDS: MORPHINE SULFATE 4 MG/ML SYRINGE IVP PRN (03:49)
[2022-04-07] MEDS ORDERED: HYDROcodone/APAP 5-325MG 1 EACH TAB PO STA (07:33)
[2022-04-07] MEDS ORDERED: MORPHINE SULFATE 4 MG/ML SYRINGE IVP PRN (07:33)
[2022-04-07] MEDS: CITALOPRAM HYDROBROMIDE 20 MG TAB PO SCH (07:40)
[2022-04-07] MEDS: GABAPENTIN 300 MG CAP PO SCH (07:42)
[2022-04-07] MEDS: ALBUTEROL NEBULIZED 2.5 MG/3 ML INHALATION SCH ×2 (08:50→11:44)
[2022-04-07] MEDS: SYMBICORT 80-4.5 MCG INHALER INHALATION SCH (08:59)
[2022-04-07] MEDS: polyethylene glycoL 3350 17 GM POWD.PACK PO SCH (11:41)
--- NOTE | 2022-04-07 12:09 | P.PN ---
Subjective Progress Note Date: 04/07/22 Patient reports ongoing abdominal pain and diarrhea. Still tolerating by mouth, but feels worse than yesterday. Denies fevers, chills. Gen: awake, alert HEENT: normocephalic, atraumatic, good hearing acuity, moist mucous membranes Resp: good air exchange, breathing comfortably with no accessory muscle use CVS: good distal perfusion x 4, GI: soft, diffusely tender to palpation, ND : no SPT, no CVAT, whiting catheter not present MSK: no pitting edema, no clubbing Neuro: non-focal, moving all extremities Psych: cooperative, euthymic mood Assessment/plan: Metastatic lung cancer on immunotherapy -Patient currently on immunotherapy -Most recent CT abdomen showed disease progression with new hepatic metastasis or lymphadenopathy was scattered osseous metastasis -Consulted oncology appreciated recommendations Community-acquired pneumonia -Chest x-ray showed the right lower lung infiltrate -Continue ceftriaxone and azithromycin, total 7 day course Depression -Resume citalopram Intractable nausea and vomiting -Continue IV fluids and Zofran Chronic abdominal pain -Pain control CODE STATUS: full code DVT prophylaxis: Heparin Anticipated discharge date: likely tomorrow morning Anticipated discharge place: Home Objective - Vital Signs Vital signs: Vital Signs Temp 98.5 F 04/07/22 07:52 Pulse 81 04/07/22 11:56 Resp 18 04/07/22 07:52 BP 128/81 04/07/22 07:52 Pulse Ox 96 04/07/22 08:53 FiO2 Intake & Output 04/06/22 04/07/22 04/07/22 18:59 06:59 18:59 Other: Voiding Method Toilet Toilet # Voids 3 2 - Labs CBC & Chem 7: 04/05/22 07:24 04/05/22 07:24 Labs: Microbiology - Last 24 Hours (Table) 04/04/22 18:20 Blood Culture - Preliminary Blood No Growth after 48 hours 04/04/22 18:05 Blood Culture - Preliminary Blood No Growth after 48 hours
[2022-04-07 14:00] VITALS: BP 97/57; PULSE 75; RESP 17; TEMP 98.2
--- NOTE | 2022-04-07 16:21 | P.DS ---
Providers Date of admission: 04/05/22 08:58 Expected date of discharge: 04/07/22 Attending physician: Eduardo See DO Consults: 04/04/22 18:04 Consult Physician Routine Consulting Provider: Mara Justin Consult Reason/Comments: lung cancer Do you want consulting provider notified?: Yes, Notify in am Primary care physician: Hector [facility] Course: Metastatic lung cancer on immunotherapy Community-acquired pneumonia Depression Intractable nausea and vomiting Chronic abdominal pain Patient is a very pleasant 62-year-old female with a past medical history of metastatic lung cancer currently undergoing immunotherapy.problem department with complaint of increased chronic abdominal pain, nausea, vomiting, cough, and phlegm production. the patient underwent full evaluation in the emergency department. CBC, coags, and CMP were unremarkable. Urinalysis is negative for infection. EKG showing sinus rhythm at 67 bpm. chest x-ray revealing possible developing infiltrate in the right lower lobe and pleural thickening of left lung apex. KUB negative for acute process. Patient was admitted under services of consultation oncology. Patients pain improved with conservative therapy. She was tolerating PO regular diet and having BMs by date of discharge. Oncology recommended d/c'ing immunotherapy. Pt will f/u with PCP and oncology. She was prescribed additional 5 days of abx for pneumonia. I spent 38 minutes coordinating this discharge. Gen: awake, alert HEENT: normocephalic, atraumatic, good hearing acuity, moist mucous membranes Resp: good air exchange, breathing comfortably with no accessory muscle use CVS: good distal perfusion x 4, GI: soft, NTTP, ND : no SPT, no CVAT, whiting catheter not present MSK: no pitting edema, no clubbing Neuro: non-focal, moving all extremities Psych: cooperative, euthymic mood Patient Condition at Discharge: Stable Plan - Discharge Summary Discharge Rx Participant: Yes New Discharge Prescriptions: New Cefdinir [Omnicef] 300 mg PO Q12HR #10 capsule Continue Citalopram Hydrobromide [Citalopram HBr] 40 mg PO DAILY Albuterol Inhaler [Ventolin Hfa Inhaler] 2 puff INHALATION RT-Q6H Gabapentin 300 mg PO BID Naloxone HCl [Narcan] 4 mg NASAL ONCE PRN PRN Reason: overdose Budesonide/Formoterol Fumarate [Symbicort 80-4.5 Mcg Inhaler] 2 puff INHALATION RT-BID Ondansetron Odt [Zofran ODT] 4 mg PO Q8HR PRN 3 Days #9 tab PRN Reason: Nausea oxyCODONE-APAP 10-325MG [Percocet 10-325 mg] 1 tab PO Q4H PRN #18 tab PRN Reason: Pain Discontinued Atezolizumab [Tecentriq] 1,200 mg IV Q21D Discharge Medication List Citalopram Hydrobromide [Citalopram HBr] 40 mg PO DAILY 02/16/17 [History] Albuterol Inhaler [Ventolin Hfa Inhaler] 2 puff INHALATION RT-Q6H 02/25/21 [History] Budesonide/Formoterol Fumarate [Symbicort 80-4.5 Mcg Inhaler] 2 puff INHALATION RT-BID 02/25/21 [History] Gabapentin 300 mg PO BID 02/15/22 [History] Ondansetron Odt [Zofran ODT] 4 mg PO Q8HR PRN 3 Days #9 tab 03/29/22 [Rx] Naloxone HCl [Narcan] 4 mg NASAL ONCE PRN 04/04/22 [History] Cefdinir [Omnicef] 300 mg PO Q12HR #10 capsule 04/07/22 [Rx] oxyCODONE-APAP 10-325MG [Percocet 10-325 mg] 1 tab PO Q4H PRN #18 tab 04/07/22 [Rx] Follow up Appointment(s)/Referral(s): [facility] [NON-STAFF] - As Needed (Call [facility] if you have questions regarding your wheelchair. ) Hector Peterson MD [Primary Care Provider] - 1-2 days (Patient needs to call the office to set up appointment ) [facility] [NON-STAFF] - 1-2 Days ([facility] will call you to set up your in home nursing and nurse aide visits. ) William Justin MD [STAFF PHYSICIAN] - 04/12/22 3:00 pm Patient Instructions/Handouts: Pneumonia (DC) Discharge Disposition: HOME SELF-CARE
== END 2022-04-07 16:46 | disposition home health service (06) | DRG 194 ==
LOC: EC 15:08 → 4SSUR 18:08 → OBSVTOIN 04-05 08:58
PROVIDERS: ADMIT Internal Medicine; ATTEND Internal Medicine
DX: J18.9 Pneumonia, unspecified organism (principal); C34.90 Malignant neoplasm of unspecified part of unspecified bronchus or lung; C78.7 Secondary malignant neoplasm of liver and intrahepatic bile duct; C79.51 Secondary malignant neoplasm of bone; D84.9 Immunodeficiency, unspecified; E86.0 Dehydration; R10.9 Unspecified abdominal pain; G89.29 Other chronic pain; F32.A Depression, unspecified; F41.9 Anxiety disorder, unspecified; R19.7 Diarrhea, unspecified; R59.1 Generalized enlarged lymph nodes; K59.00 Constipation, unspecified; M19.90 Unspecified osteoarthritis, unspecified site; M75.02 Adhesive capsulitis of left shoulder; M54.9 Dorsalgia, unspecified; Z87.891 Personal history of nicotine dependence; Z85.3 Personal history of malignant neoplasm of breast; Z79.899 Other long term (current) drug therapy; Z79.51 Long term (current) use of inhaled steroids; Z17.0 Estrogen receptor positive status [ER+]; Z98.42 Cataract extraction status, left eye; Z98.41 Cataract extraction status, right eye; Z90.12 Acquired absence of left breast and nipple; Z71.3 Dietary counseling and surveillance; Z28.310 Unvaccinated for COVID-19; Z88.0 Allergy status to penicillin; Z88.6 Allergy status to analgesic agent
CPT/HCPCS: 36415; 71046; 74018; 80048; 80053; 81003; 82150; 83690; 85025; 85610; 85730; 87040; 87324; 93005; 94640; 94760; 96374; 96375; 99285

== ENCOUNTER 2022-04-23 03:48 | Emergency (ER) | payer MEDICARE ==
[2022-04-23 04:17] VITALS: TEMP 98
[2022-04-23] MEDS ORDERED: DICYCLOMINE 10 MG/ML 2 ML AMP IM STA (04:30)
[2022-04-23 05:04] LABS: Basophils % (A) 1 %; Eosinophils # (A) 0.1 k/uL (0-0.7); Eosinophils % (A) 2 %; HCT 39.3 % (34.0-46.0); HGB 13.3 gm/dL (11.4-16.0); Hypochromasia Slight; Lymphocytes # (A) 0.8 k/uL (1.0-4.8); Lymphocytes % (A) 22 %; MCH 31.3 pg (25.0-35.0); MCHC 33.7 g/dL (31.0-37.0); MCV 92.9 fL (80.0-100.0); Mean Platelet Volume 7.9; Monocytes # (A) 0.2 k/uL (0-1.0); Monocytes % (A) 6 %; Neutrophils # (A) 2.5 k/uL (1.3-7.7); Neutrophils % (A) 68 %; Platelet Count 201 k/uL (150-450); RBC 4.23 m/uL (3.80-5.40); RDW 14.2 % (11.5-15.5); WBC 3.7 k/uL (3.8-10.6)
--- NOTE | 2022-04-23 05:07 | XR ---
EXAMINATION TYPE: XR KUB DATE OF EXAM: 04/23/2022 COMPARISON: 04/04/2022 HISTORY: Abdominal pain TECHNIQUE: FINDINGS: Single view supine was obtained. No sign of intestinal obstruction or pneumoperitoneum. Fec al pattern is normal. No evidence of a mass. Lung bases are clear. IMPRESSION: Nonacute abdomen. No adverse change.
[2022-04-23 05:27] LABS: ALT 24 U/L (4-34); AST 39 U/L (14-36); African American GFR (CKD) >90 (>60 ml/min/1.73 sqM); Albumin 4.2 g/dL (3.5-5.0); Alkaline Phosphatase 146 U/L (38-126); Amylase 50 U/L (30-110); Anion Gap 10 mmol/L; Blood Urea Nitrogen 12 mg/dL (7-17); Carbon Dioxide 28 mmol/L (22-30); Chloride 98 mmol/L (98-107); Glucose 107 mg/dL (74-99); Lipase 27 U/L (23-300); Non-African American GFR(CKD) >90 (>60 ml/min/1.73 sqM); Potassium 3.9 mmol/L (3.5-5.1); Sodium 136 mmol/L (137-145); Total Bilirubin 0.4 mg/dL (0.2-1.3); Total Protein 6.9 g/dL (6.3-8.2)
[2022-04-23 05:31] LABS: Appearance,Urine Cloudy (Clear); Bilirubin,Urine 1+ (Negative); Blood,Urine Negative (Negative); Color,Urine Yellow; Glucose,Urine (UA) Negative (Negative); Ketones,Urine Trace (Negative); Leukocyte Esterase,Urine Small (Negative); Mucus,Urine Many /hpf; Nitrite,Urine Negative (Negative); PH, Urine 6.5 (5.0-8.0); Protein,Urine 2+ (Negative); Squamous Epithelial Cell,Urine 4 /hpf (0-4); Uric Acid Crystals,Urine Many /hpf; WBC,Urine 9 /hpf (0-5)
--- NOTE | 2022-04-23 06:35 | ED ---
Abdominal Pain HPI - General Chief Complaint: Abdominal Pain Stated Complaint: Abdominal Pain Time Seen by Provider: 04/23/22 04:02 Source: EMS Mode of arrival: EMS - History of Present Illness MD Complaint: abdominal pain Onset/Timin -: week(s) Location: periumbilical, RUQ, RLQ Radiation: none Severity: moderate Quality: aching Consistency: constant Improves With: nothing, bowel movement Associated Symptoms: denies other symptoms - Related Data Home Medications Medication Instructions Recorded Confirmed Citalopram Hydrobromide 40 mg PO DAILY 02/16/17 04/04/22 [Citalopram HBr] Albuterol Inhaler [Ventolin Hfa 2 puff INHALATION RT-Q6H 02/25/21 04/04/22 Inhaler] Budesonide/Formoterol Fumarate 2 puff INHALATION RT-BID 02/25/21 04/04/22 [Symbicort 80-4.5 Mcg Inhaler] Gabapentin 300 mg PO BID 02/15/22 04/04/22 Naloxone HCl [Narcan] 4 mg NASAL ONCE PRN 04/04/22 04/04/22 Previous Rx's Medication Instructions Recorded Ondansetron Odt [Zofran ODT] 4 mg PO Q8HR PRN 3 Days #9 tab 03/29/22 Cefdinir [Omnicef] 300 mg PO Q12HR #10 capsule 04/07/22 oxyCODONE-APAP 10-325MG [Percocet 1 tab PO Q4H PRN #18 tab 04/07/22 10-325 mg] Dicyclomine [Bentyl] 20 mg PO QID #20 tablet 04/23/22 Allergies Allergy/AdvReac Type Severity Reaction Status Date / Time amoxicillin [Amoxicillin] Allergy Rash/Hives Verified 04/23/22 04:17 on entire body fentanyl Allergy Dyspnea, Verified 04/23/22 04:17 See comment Review of Systems ROS Statement: Those systems with pertinent positive or pertinent negative responses have been documented in the HPI. ROS Other: All systems not noted in ROS Statement are negative. Constitutional: Denies: fever, chills, weakness Respiratory: Denies: cough, dyspnea Cardiovascular: Denies: chest pain, palpitations Gastrointestinal: Reports: abdominal pain. Denies: nausea, vomiting, diarrhea, constipation Genitourinary: Denies: dysuria, frequency, hematuria Musculoskeletal: Denies: back pain Skin: Denies: rash Neurological: Denies: headache, weakness, numbness Past Medical History Past Medical History: Cancer Additional Past Medical History / Comment(s): gallstones, arthritis, chronic back pain, past lt breast cancer, cataracts, lt frozen shoulder History of Any Multi-Drug Resistant Organisms: None Reported Past Surgical History: Section, Tubal Ligation Additional Past Surgical History / Comment(s): left breast biospy, left breast masectomy Past Anesthesia/Blood Transfusion Reactions: Motion Sickness Additional Past Anesthesia/Blood Transfusion Reaction / Comment(s): clausterphobia Past Psychological History: Anxiety, Depression Smoking Status: Former smoker Past Alcohol Use History: None Reported Past Drug Use History: Marijuana - Past Family History Father Family Medical History: Cancer Additional Family Medical History / Comment(s): liver cancer Mother History Unknown: Yes Additional Family Medical History / Comment(s): AAA General Exam General appearance: alert, in no apparent distress Head exam: Present: atraumatic, normocephalic Eye exam: Present: normal appearance. Absent: scleral icterus, conjunctival injection Neck exam: Present: normal inspection Respiratory exam: Present: normal lung sounds bilaterally. Absent: respiratory distress, wheezes, rales, rhonchi, stridor Cardiovascular Exam: Present: regular rate, normal rhythm, normal heart sounds. Absent: systolic murmur, diastolic murmur, rubs, gallop GI/Abdominal exam: Present: soft. Absent: distended, tenderness, guarding, rebound, rigid, mass, pulsatile mass Extremities exam: Present: normal inspection, normal capillary refill. Absent: pedal edema, calf tenderness Back exam: Present: normal inspection. Absent: CVA tenderness (R), CVA tenderness (L) Neurological exam: Present: alert Skin exam: Present: warm, dry, intact, normal color. Absent: rash Course Vital Signs 04/23/22 04/23/22 04:15 06:36 Temperature 98 F Pulse Rate 84 89 Respiratory 19 18 Rate Blood Pressure 100/71 112/63 O2 Sat by Pulse 96 95 Oximetry Medical Decision Making - Medical Decision Making Patient is 62-year-old woman here for abdominal pain going on for between 1 and 2 months. Her exam not concerning for acute surgical process. Labs do not reveal etiology of the pain, but she is feeling better here and would like to go home. We discussed appropriate further care and follow-up as well as return parameters. - Lab Data Result diagrams: 04/23/22 04:46 04/23/22 04:46 Lab Results 04/23/22 04/23/22 04/23/22 Range/Units 04:46 04:46 05:08 WBC 3.7 L (3.8-10.6) k/uL RBC 4.23 (3.80-5.40) m/uL Hgb 13.3 (11.4-16.0) gm/dL Hct 39.3 (34.0-46.0) % MCV 92.9 (80.0-100.0) fL MCH 31.3 (25.0-35.0) pg MCHC 33.7 (31.0-37.0) g/dL RDW 14.2 (11.5-15.5) % Plt Count 201 (150-450) k/uL MPV 7.9 Neutrophils % 68 % Lymphocytes % 22 % Monocytes % 6 % Eosinophils % 2 % Basophils % 1 % Neutrophils # 2.5 (1.3-7.7) k/uL Lymphocytes # 0.8 L (1.0-4.8) k/uL Monocytes # 0.2 (0-1.0) k/uL Eosinophils # 0.1 (0-0.7) k/uL Basophils # 0.0 (0-0.2) k/uL Hypochromasia Slight Sodium 136 L (137-145) mmol/L Potassium 3.9 (3.5-5.1) mmol/L Chloride 98 (98-107) mmol/L Carbon Dioxide 28 (22-30) mmol/L Anion Gap 10 mmol/L BUN 12 (7-17) mg/dL Creatinine 0.71 (0.52-1.04) mg/dL Est GFR (CKD-EPI)AfAm >90 (>60 ml/min/1.73 sqM) Est GFR (CKD-EPI)NonAf >90 (>60 ml/min/1.73 sqM) Glucose 107 H (74-99) mg/dL Calcium 10.0 (8.4-10.2) mg/dL Total Bilirubin 0.4 (0.2-1.3) mg/dL AST 39 H (14-36) U/L ALT 24 (4-34) U/L Alkaline Phosphatase 146 H (38-126) U/L Total Protein 6.9 (6.3-8.2) g/dL Albumin 4.2 (3.5-5.0) g/dL Amylase 50 (30-110) U/L Lipase 27 (23-300) U/L Urine Color Yellow Urine Appearance Cloudy H (Clear) Urine pH 6.5 (5.0-8.0) Ur Specific [place] 1.040 H (1.001-1.035) Urine Protein 2+ H (Negative) Urine Glucose (UA) Negative (Negative) Urine Ketones Trace H (Negative) Urine Blood Negative (Negative) Urine Nitrite Negative (Negative) Urine Bilirubin 1+ H (Negative) Urine Urobilinogen 3.0 (<2.0) mg/dL Ur Leukocyte Esterase Small H (Negative) Urine WBC 9 H (0-5) /hpf Ur Squamous Epith Cells 4 (0-4) /hpf Uric Acid Crystals Many H (None) /hpf Urine Mucus Many H (None) /hpf Disposition Clinical Impression: Abdominal pain Disposition: HOME SELF-CARE Condition: Good Instructions (If sedation given, give patient instructions): Abdominal Pain (ED) Prescriptions: Dicyclomine [Bentyl] 20 mg PO QID #20 tablet Is patient prescribed a controlled substance at d/c from ED?: No Referrals: Hector Peterson MD [Primary Care Provider] - 1-2 days
[2022-04-23 06:36] VITALS: BP 112/63; PULSE 89; RESP 18
[2022-04-23] MEDS ORDERED: ONDANSETRON 4 MG/2 ML VIAL IVP STA (06:47)
== END 2022-04-23 07:49 | disposition home or self-care (01) ==
LOC: EC 03:48
DX: R10.11 Right upper quadrant pain (principal); F41.9 Anxiety disorder, unspecified; F32.A Depression, unspecified; Z87.891 Personal history of nicotine dependence; F12.90 Cannabis use, unspecified, uncomplicated; Z88.0 Allergy status to penicillin; Z88.5 Allergy status to narcotic agent; Z79.899 Other long term (current) drug therapy
CPT/HCPCS: 36415; 80053; 82150; 83690; 85025; 81001; 74018; 99284; 96374; 96372; J0500; J2405

== ENCOUNTER 2022-05-10 12:44 | Emergency (ER) | payer MEDICARE ==
--- NOTE | 2022-05-10 12:54 | ED ---
General Adult HPI - General Chief complaint: Shortness of Breath Stated complaint: ALLI Time Seen by Provider: 05/10/22 12:44 Source: patient, EMS, RN notes reviewed, old records reviewed Mode of arrival: EMS Limitations: no limitations - History of Present Illness Initial comments: This is a 62-year-old female presents emergency department with past medical history significant for breast cancer which she was diagnosed with a 2015 and lung cancer which was diagnosed with and 2020. Patient states she continues to smoke. Patient states the lung cancer on the left side and she is going through immunotherapy at this time. Patient states the last couple days she has been short of breath and it seems to be getting worse especially with some exertion. Patient denies chest pain or palpitations. Patient states she's had no swelling to the legs or calf tenderness. Patient states she isn't eating or drinking because she doesn't have an appetite. Patient denies any recent fever chills or cough. Patient denies any headache patient denies lightheadedness or dizziness. Patient has any back pain. - Related Data Home Medications Medication Instructions Recorded Confirmed Citalopram Hydrobromide 40 mg PO DAILY 02/16/17 05/10/22 [Citalopram HBr] Albuterol Inhaler [Ventolin Hfa 2 puff INHALATION RT-Q6H 02/25/21 05/10/22 Inhaler] Budesonide/Formoterol Fumarate 2 puff INHALATION RT-BID 02/25/21 05/10/22 [Symbicort 80-4.5 Mcg Inhaler] Gabapentin 300 mg PO BID 02/15/22 05/10/22 Naloxone HCl [Narcan] 4 mg NASAL ONCE PRN 04/04/22 05/10/22 Previous Rx's Medication Instructions Recorded Ondansetron Odt [Zofran ODT] 4 mg PO Q8HR PRN 3 Days #9 tab 03/29/22 oxyCODONE-APAP 10-325MG [Percocet 1 tab PO Q4H PRN #18 tab 04/07/22 10-325 mg] Dicyclomine [Bentyl] 20 mg PO QID #20 tablet 04/23/22 Allergies Allergy/AdvReac Type Severity Reaction Status Date / Time amoxicillin [Amoxicillin] Allergy Rash/Hives Verified 05/10/22 14:18 on entire body fentanyl Allergy Dyspnea, Verified 05/10/22 14:18 See comment Review of Systems ROS Statement: Those systems with pertinent positive or pertinent negative responses have been documented in the HPI. ROS Other: All systems not noted in ROS Statement are negative. Past Medical History Past Medical History: Cancer Additional Past Medical History / Comment(s): gallstones, arthritis, chronic back pain, past lt breast cancer, cataracts, lt frozen shoulder History of Any Multi-Drug Resistant Organisms: None Reported Past Surgical History: Section, Tubal Ligation Additional Past Surgical History / Comment(s): left breast biospy, left breast masectomy Past Anesthesia/Blood Transfusion Reactions: Motion Sickness Additional Past Anesthesia/Blood Transfusion Reaction / Comment(s): emily sterphobia Past Psychological History: Anxiety, Depression Smoking Status: Former smoker Past Alcohol Use History: None Reported Past Drug Use History: Marijuana - Past Family History Father Family Medical History: Cancer Additional Family Medical History / Comment(s): liver cancer Mother History Unknown: Yes Additional Family Medical History / Comment(s): AAA General Exam - General Exam Comments Initial Comments: GENERAL: Patient is well-developed and well-nourished. Patient is nontoxic and well- hydrated and is in mild distress. ENT: Neck is soft and supple. No significant lymphadenopathy is noted. Oropharynx is clear. Moist mucous membranes. Neck has full range of motion without eliciting any pain. EYES: The sclera were anicteric and conjunctiva were pink and moist. Extraocular movements were intact and pupils were equal round and reactive to light. Eyelids were unremarkable. PULMONARY: Unlabored respirations. Good breath sounds bilaterally. No audible rales rhonchi or wheezing was noted. CARDIOVASCULAR: Patient is tachycardic at 130 bpm. ABDOMEN: Soft and nontender with normal bowel sounds. SKIN: Skin is clear with no lesions or rashes and otherwise unremarkable. NEUROLOGIC: Patient is alert and oriented x3. Cranial nerves II through XII are grossly i ntact. Motor and sensory are also intact. Normal speech, volume and content. Symmetrical smile. MUSCULOSKELETAL: Normal extremities with adequate strength and full range of motion. LYMPHATICS: No significant lymphadenopathy is noted PSYCHIATRIC: Normal psychiatric evaluation. Limitations: no limitations Course Vital Signs 05/10/22 05/10/22 12:45 17:57 Pulse Rate 114 H 101 H Respiratory 22 Rate Blood Pressure 102/66 95/62 O2 Sat by Pulse 95 100 Oximetry Medical Decision Making - Medical Decision Making EKG is interpreted by me. EKG shows sinus tachycardia at 112 bpm OK interval 204 QRS is under 23 Q-T intervals [address] was interpreted by me and it showed no obvious pulmonary embolism. CT does show probable progression of disease. X-ray of the chest was interpreted by me. X-ray showed some fullness in the left hilum. I will begin the room to reevaluate the patient she was having no difficulty breathing and thought she can be discharged home. Patient was sleeping in the room and oxygenating in the high 90s. I reviewed previous visits on this patient to get a more informed history on the patient's medical issues. - Lab Data Result diagrams: 05/10/22 14:51 05/10/22 14:51 Lab Results 05/10/22 05/10/22 05/10/22 Range/Units 13:23 14:51 14:51 WBC 4.1 (3.8-10.6) k/uL RBC 4.52 (3.80-5.40) m/uL Hgb 13.7 (11.4-16.0) gm/dL Hct 41.8 (34.0-46.0) % MCV 92.4 (80.0-100.0) fL MCH 30.4 (25.0-35.0) pg MCHC 32.9 (31.0-37.0) g/dL RDW 14.5 (11.5-15.5) % Plt Count 227 (150-450) k/uL MPV 8.2 Neutrophils % 77 % Lymphocytes % 14 % Monocytes % 6 % Eosinophils % 2 % Basophils % 1 % Neutrophils # 3.2 (1.3-7.7) k/uL Lymphocytes # 0.6 L (1.0-4.8) k/uL Monocytes # 0.2 (0-1.0) k/uL Eosinophils # 0.1 (0-0.7) k/uL Basophils # 0.0 (0-0.2) k/uL Hypochromasia Slight PT 11.7 (9.0-12.0) sec INR 1.1 (<1.2) APTT >200.0 H* (22.0-30.0) sec Sodium (137-145) mmol/L Potassium (3.5-5.1) mmol/L Chloride (98-107) mmol/L Carbon Dioxide (22-30) mmol/L Anion Gap mmol/L BUN (7-17) mg/dL Creatinine (0.52-1.04) mg/dL Est GFR (CKD-EPI)AfAm (>60 ml/min/1.73 sqM) Est GFR (CKD-EPI)NonAf (>60 ml/min/1.73 sqM) Glucose (74-99) mg/dL Plasma Lactic Acid Jama (0.7-2.0) mmol/L Calcium (8.4-10.2) mg/dL Magnesium (1.6-2.3) mg/dL Total Bilirubin (0.2-1.3) mg/dL AST (14-36) U/L ALT (4-34) U/L Alkaline Phosphatase (38-126) U/L Troponin I (0.000-0.034) ng/mL NT-Pro-B Natriuret Pep pg/mL Total Protein (6.3-8.2) g/dL Albumin (3.5-5.0) g/dL Coronavirus (PCR) Not Detected (Not Detectd) 05/10/22 05/10/22 05/10/22 Range/Units 14:51 14:51 14:51 WBC (3.8-10.6) k/uL RBC (3.80-5.40) m/uL Hgb (11.4-16.0) gm/dL Hct (34.0-46.0) % MCV (80.0-100.0) fL MCH (25.0-35.0) pg MCHC (31.0-37.0) g/dL RDW (11.5-15.5) % Plt Count (150-450) k/uL MPV Neutrophils % % Lymphocytes % % Monocytes % % Eosinophils % % Basophils % % Neutrophils # (1.3-7.7) k/uL Lymphocytes # (1.0-4.8) k/uL Monocytes # (0-1.0) k/uL Eosinophils # (0-0.7) k/uL Basophils # (0-0.2) k/uL Hypochromasia PT (9.0-12.0) sec INR (<1.2) APTT (22.0-30.0) sec Sodium 137 (137-145) mmol/L Potassium 4.4 (3.5-5.1) mmol/L Chloride 99 (98-107) mmol/L Carbon Dioxide 23 (22-30) mmol/L Anion Gap 15 mmol/L BUN 16 (7-17) mg/dL Creatinine 0.69 (0.52-1.04) mg/dL Est GFR (CKD-EPI)AfAm >90 (>60 ml/min/1.73 sqM) Est GFR (CKD-EPI)NonAf >90 (>60 ml/min/1.73 sqM) Glucose 70 L (74-99) mg/dL Plasma Lactic Acid Jama 1.9 (0.7-2.0) mmol/L Calcium 9.5 (8.4-10.2) mg/dL Magnesium 1.9 (1.6-2.3) mg/dL Total Bilirubin 0.7 (0.2-1.3) mg/dL AST 104 H (14-36) U/L ALT 59 H (4-34) U/L Alkaline Phosphatase 385 H (38-126) U/L Troponin I <0.012 (0.000-0.034) ng/mL NT-Pro-B Natriuret Pep pg/mL Total Protein 6.9 (6.3-8.2) g/dL Albumin 4.0 (3.5-5.0) g/dL Coronavirus (PCR) (Not Detectd) 05/10/22 05/10/22 Range/Units 14:51 16:54 WBC (3.8-10.6) k/uL RBC (3.80-5.40) m/uL Hgb (11.4-16.0) gm/dL Hct (34.0-46.0) % MCV (80.0-100.0) fL MCH (25.0-35.0) pg MCHC (31.0-37.0) g/dL RDW (11.5-15.5) % Plt Count (150-450) k/uL MPV Neutrophils % % Lymphocytes % % Monocytes % % Eosinophils % % Basophils % % Neutrophils # (1.3-7.7) k/uL Lymphocytes # (1.0-4.8) k/uL Monocytes # (0-1.0) k/uL Eosinophils # (0-0.7) k/uL Basophils # (0-0.2) k/uL Hypochromasia PT (9.0-12.0) sec INR (<1.2) APTT 28.4 (22.0-30.0) sec Sodium (137-145) mmol/L Potassium (3.5-5.1) mmol/L Chloride (98-107) mmol/L Carbon Dioxide (22-30) mmol/L Anion Gap mmol/L BUN (7-17) mg/dL Creatinine (0.52-1.04) mg/dL Est GFR (CKD-EPI)AfAm (>60 ml/min/1.73 sqM) Est GFR (CKD-EPI)NonAf (>60 ml/min/1.73 sqM) Glucose (74-99) mg/dL Plasma Lactic Acid [place] (0.7-2.0) mmol/L Calcium (8.4-10.2) mg/dL Magnesium (1.6-2.3) mg/dL Total Bilirubin (0.2-1.3) mg/dL AST (14-36) U/L ALT (4-34) U/L Alkaline Phosphatase (38-126) U/L Troponin I (0.000-0.034) ng/mL NT-Pro-B Natriuret Pep 268 pg/mL Total Protein (6.3-8.2) g/dL Albumin (3.5-5.0) g/dL Coronavirus (PCR) (Not Detectd) - EKG Data -: EKG Interpreted by Me EKG Comments: EKG shows sinus tachycardia at 112 bpm OK interval 104 QRS is under 23 QT interval 3:30 when QTC is 397. Patient's right bundle branch block. Patient's EKG shows no ST segment elevation however before has quite a bit of noise in it Disposition Clinical Impression: Lung cancer Disposition: HOME SELF-CARE Condition: Good Instructions (If sedation given, give patient instructions): Lung Cancer (DC), Dyspnea (ED) Is patient prescribed a controlled substance at d/c from ED?: No Referrals: Hector Peterson MD [Primary Care Provider] - 1-2 days Time of Disposition: 19:37
[2022-05-10] MEDS ORDERED: SODIUM CHLORIDE 0.9% 1,000 ML IV STA (14:21)
--- NOTE | 2022-05-10 14:45 | XR ---
EXAMINATION TYPE: XR chest 2V DATE OF EXAM: 05/10/2022 COMPARISON: Chest x-ray April 04, 2022. CT chest November 09, 2021. Most recent PET/CT February 25, 2022 HISTORY: History of lung cancer with difficulty in breathing. TECHNIQUE: Frontal and lateral views of the chest are obtained. FINDINGS: Stable right internal jugular Mediport catheter. Background chronic emphysematous change r edemonstrated. Persistent dextroconvex scoliosis centered mid thoracic spine. There is new left hilar masslike consolidation. Persistent left-sided volume loss with left apical pleural thickening and el evated left hemidiaphragm. Right lung remains clear. Left axillary surgical clips redemonstrated. IMPRESSION: Chronic changes with new left hilar acute opacity or consolidation. Cannot exclude recur rent neoplasm. Progress study advised.
[2022-05-10 15:08] LABS: Basophils % (A) 1 %; Eosinophils # (A) 0.1 k/uL (0-0.7); Eosinophils % (A) 2 %; HCT 41.8 % (34.0-46.0); HGB 13.7 gm/dL (11.4-16.0); Hypochromasia Slight; Lymphocytes # (A) 0.6 k/uL (1.0-4.8); Lymphocytes % (A) 14 %; MCH 30.4 pg (25.0-35.0); MCHC 32.9 g/dL (31.0-37.0); MCV 92.4 fL (80.0-100.0); Mean Platelet Volume 8.2; Monocytes # (A) 0.2 k/uL (0-1.0); Monocytes % (A) 6 %; Neutrophils # (A) 3.2 k/uL (1.3-7.7); Neutrophils % (A) 77 %; Platelet Count 227 k/uL (150-450); RBC 4.52 m/uL (3.80-5.40); RDW 14.5 % (11.5-15.5); WBC 4.1 k/uL (3.8-10.6)
[2022-05-10 15:18] LABS: ALT 59 U/L (4-34); AST 104 U/L (14-36); African American GFR (CKD) >90 (>60 ml/min/1.73 sqM); Alkaline Phosphatase 385 U/L (38-126); Anion Gap 15 mmol/L; Blood Urea Nitrogen 16 mg/dL (7-17); Calcium 9.5 mg/dL (8.4-10.2); Carbon Dioxide 23 mmol/L (22-30); Chloride 99 mmol/L (98-107); Glucose 70 mg/dL (74-99); Magnesium 1.9 mg/dL (1.6-2.3); Non-African American GFR(CKD) >90 (>60 ml/min/1.73 sqM); Potassium 4.4 mmol/L (3.5-5.1); Sodium 137 mmol/L (137-145); Total Bilirubin 0.7 mg/dL (0.2-1.3); Total Protein 6.9 g/dL (6.3-8.2)
[2022-05-10 15:29] LABS: INR 1.1 (<1.2); Prothrombin Time 11.7 sec (9.0-12.0)
[2022-05-10] MEDS ORDERED: HYDROmorphone 0.5 MG/0.5 ML SYRINGE IVP STA (15:42)
[2022-05-10 15:52] LABS: Partial Thromboplastin Time >200.0 sec (22.0-30.0)
--- NOTE | 2022-05-10 19:09 | CT ---
EXAMINATION TYPE: CT chest angio for PE CT DLP: 186.7 mGycm, Automated exposure control for dose reduction was used. DATE OF EXAM: 05/10/2022 6:23 PM COMPARISON: PET/CT 02/25/2022, CT chest 11/09/2021, CT abdomen pelvis 2021. CLINICAL INDICATION:Female, 62 years old with history of Difficulty breathing, lung cancer; ALLI x2 da ys. Hx of lung and breast ca TECHNIQUE/CONTRAST: CTA scan of the thorax is performed with IV Contrast, patient injected with 65 mL of Isovue 370, pulm onary embolism protocol. MIP images are created and reviewed. FINDINGS: Pulmonary Artery: There is no evidence for a filling defect within the pulmonary vasculature to sugge st acute pulmonary embolism. The pulmonary artery is of normal size. Lungs/Pleura: New consolidation changes within the left upper lung superimposed on centrilobular emph ysema changes. Some of the consolidation like changes have a more tumor-like appearance with nodulari ty along the left radiology major fissure noted. There is associated small left pleural effusion. Fin dings are new from prior PET 02/25/2022. Airway: Large airways are patent. Heart: Heart is within normal limits for size. Vasculature: No evidence of aortic aneurysm. Mediastinum: New lymphadenopathy throughout the mediastinum and left supraclavicular region. There is some streak artifact limiting evaluation of the shoulders. Prevascular space lymph nodes which are n ew and enlarged measuring up to 13 mm, with additional diffuse soft tissue throughout the paratrachea l region and lower prevascular space. Musculoskeletal: No acute osseous abnormalities, scattered subtle sclerotic metastatic disease is see n throughout the spine. Soft Tissues: Unremarkable. Lower neck: No significant findings. Upper Abdomen: Scattered hypodensities throughout the liver as seen on prior CT abdomen and pelvis. G ranulomas disease within the spleen noted. IMPRESSION: 1. No evidence of pulmonary embolism. 2. Findings concerning for progression of disease with increasing mediastinal lymphadenopathy and dif fuse mediastinal soft tissue attenuation as well as bilateral perihilar lymph nodes. Additional nodul arity along the left fissure and new left pleural effusion suggestive of pleural metastatic disease. There is superimposed left upper lobe consolidation which may represent superimposed infection versus lymphangitic carcinomatosis. Attention follow-up PET/CT and clinical correlation.
[2022-05-10] MEDS ORDERED: KETOROLAC 15 MG/ML 1 ML VIAL IVP STA (19:26)
[2022-05-10 19:40] VITALS: BP 104/71; PULSE 96; RESP 18
== END 2022-05-10 20:06 | disposition home or self-care (01) ==
LOC: EC 12:44
DX: C34.90 Malignant neoplasm of unspecified part of unspecified bronchus or lung (principal); Z87.891 Personal history of nicotine dependence; Z88.0 Allergy status to penicillin; Z88.6 Allergy status to analgesic agent; Z20.822 Contact with and (suspected) exposure to COVID-19
CPT/HCPCS: 36415; 93005; 83880; 80053; 83605; 83735; 84484; 85025; 85610; 85730; 87040; 87635; 71046; 71275; 99285; 96374; 96375; 96361; J1885; J1170; Q9967; 99284